=== PATIENT | male | born 1960 | race Caucasian/White ===

== ENCOUNTER 2017-11-06 08:22 | Inpatient (IN) ==
--- NOTE | 2017-11-06 10:46 | ED ---
HPI General Chief Complaint: Psychiatric Symptoms Stated Complaint: PSYCH EVAL/VCSO Time Seen by Provider: 11/06/17 10:36 History of Present Illness HPI Narrative: Patient comes to the emergency department for psychiatric evaluation after being medically cleared at another hospital. Patient was accepted in transfer by Dr. Bourgeois. Patient was placed on a Khalil act for suicidal thoughts. Patient states he is under a lot of stress, has been drinking, concerned over losing his house, and thought about killing himself. Patient denies any previous suicide attempts. Patient states he thought about throwing himself in front of a train. He states that he tried to get into [facility] yesterday, but was redirected to the hospital. Patient's concerned that he has not had any of his blood pressure medications since yesterday. Denies any symptoms currently. Related Data Home Medications Medication Instructions Recorded Confirmed amlodipine 5 mg PO DAILY 11/06/17 11/06/17 doxepin 25 mg PO HS 11/06/17 11/06/17 lisinopril 20 mg PO BID 11/06/17 11/06/17 methylprednisolone 0.4 mg SUBLINGUAL PRN 11/06/17 11/06/17 nitroglycerin See Label Instructions .ROUTE 11/06/17 11/06/17 .COMPLEX oxycodone-acetaminophen See Label Instructions .ROUTE 11/06/17 11/06/17 .COMPLEX PRN pravastatin 20 mg PO HS 11/06/17 11/06/17 Allergies Allergy/AdvReac Type Severity Reaction Status Date / Time No Known Allergies Allergy Uncoded 11/09/11 09:16 Review of Systems Except as stated in HPI: all other systems reviewed are negative PMFSH Medical History Medical History COPD (chronic obstructive pulmonary disease) (Acute) Chest pain (Acute) DVT (deep venous thrombosis) (Acute) Dental decay (Acute) High cholesterol (Acute) Hypertension (Acute) Social History Social History Substance History: Active Abuse Smoking Status: Current every day smoker Tobacco Type: Cigarettes How Often Do You Have a Drink Containing Alcohol: 4 or more times a week Exam Narrative Exam Narrative: GENERAL: Well-developed, overly nourished, in no acute distress , and non-ill appearing. SKIN: Focused skin assessment warm and dry. Venous stasis dermatitis noted bilateral lower extremities. HEAD: Atraumatic. Normocephalic. EYES: Pupils equal and round. EOMI. No scleral icterus. No injection or drainage. ENT: No nasal bleeding or discharge. Mucous membranes pink and moist. NECK: Trachea midline. Supple. No nuclear rigidity. CARDIOVASCULAR: Regular rate and rhythm. No murmur appreciated. RESPIRATORY: No accessory muscle use. No respiratory distress. MUSCULOSKELETAL: No obvious deformities. No clubbing. No cyanosis. Bilateral lower extremity edema noted. Full range of motion. NEUROLOGICAL: Awake and alert. No obvious cranial nerve deficits. Motor grossly within normal limits. Normal speech. PSYCHIATRIC: Appropriate mood and affect; insight and judgment normal. Course Initial Documented Vital Signs Temperature 98.3 F 11/06/17 08:54 Pulse Rate 84 11/06/17 08:54 Respiratory Rate 20 11/06/17 08:54 Blood Pressure 178/106 H 11/06/17 08:54 Pulse Oximetry 95 11/06/17 08:54 Last Documented Vital Signs Temperature 98.3 F 11/06/17 08:54 Pulse Rate 68 11/06/17 14:10 Respiratory Rate 20 11/06/17 08:54 Blood Pressure 163/90 H 11/06/17 14:10 Pulse Oximetry 95 11/06/17 08:54 Medical Decision Making MDM Narrative Medical decision making narrative: Patient was seen and examined. Patient previously medically cleared by previous hospital for further treatment and evaluation by psych. Final disposition per psych. Differential Diagnosis Differential Diagnosis: Homicidal, suicidal, depression Discharge Plan Discharge Disposition Patient Disposition: 30 Still Patient Discharge Details Diagnosis: Suicidal ideation Physicians Team ED Provider: Alisia Stone ED Midlevel Provider: Prince Ceja Primary Care Provider: UNKNOWN, Rxs /Orders / Referrals /Forms Prescriptions: No Action methylprednisolone 0.4 mg Sublingual PRN RF: 0 nitroglycerin See Label Instructions .ROUTE .COMPLEX RF: 0 amlodipine 5 mg PO DAILY RF: 0 doxepin 25 mg PO HS RF: 0 oxycodone-acetaminophen See Label Instructions .ROUTE .COMPLEX PRN (Reason: Pain) RF: 0 pravastatin 20 mg PO HS RF: 0 lisinopril 20 mg PO BID RF: 0 Status ED Status: Medically Cleared
[2017-11-06] MEDS ORDERED: amLODIPine 5 MG Tablet PO ONE (10:47)
[2017-11-06] MEDS ORDERED: Haloperidol Inj 5 MG/ML Ampul IV.PUSH PRN (10:47)
[2017-11-06] MEDS ORDERED: Lisinopril 20 MG Tablet PO ONE (12:59)
[2017-11-06] MEDS: LORazepam 1 MG Tablet PO PRN (20:07)
[2017-11-07] MEDS: LORazepam 1 MG Tablet PO PRN ×2 (04:34→08:54)
[2017-11-07] MEDS ORDERED: Bisacodyl 10 MG Supp RECTAL PRN (13:50)
[2017-11-07] MEDS ORDERED: Haloperidol Inj 5 MG/ML Ampul IV.PUSH PRN (13:50)
[2017-11-07] MEDS ORDERED: Aluminum/Magnesium/Simethacone Susp 30 ML UDC PO PRN (13:50)
[2017-11-07] MEDS ORDERED: LORazepam 1 MG Tablet PO PRN (13:50)
--- NOTE | 2017-11-07 14:12 | P.HPPSY ---
Provisional Diagnosis Admission Date: November 06, 2017 08:22 Crossnore I.: Adjustment disorder with depressed mood vs major depressive disorder, recurrent , severe, without psychotic, alcohol induced mood disorder, alcohol use disorder , Cross[place] II.: Deferred Cross[place] III.: Bilateral leg cellulitis, hypertension, COPD Competence Certification of Person's Competence To Provide Express and Informed Consent I have personally examined Guanaco Zhang, a person being served at [facility] on, November 07, 2017 1352. Express and informed consent means consent voluntarily given in writing, by a competent person, after sufficient explanation and disclosure of the subject matter involved to enable the person to make a knowing and willful decision without any element of force, fraud, deceit, duress, or other form of constraint or coercion. This person is 18 years of age or older, is not now known to be incompetent to consent to treatment with a guardian advocate, and does not have a health care surrogate or proxy currently making medical treatment decisions. I have found this person to be one of the following: [x] Competent to provide express and informed consent, as defined above, for voluntary admission to this facility and is competent to provide express and informed consent for treatment. He/she has the consistent capacity to make well reasoned, willful, and knowing decisions concerning his or her medical or mental health treatment. The person fully and consistently understands the purpose of the admission for examination/placement and is fully capable of personally exercising all rights assured [place] Incompetent to provide express and informed consent to voluntary admission, and this is incompetent to provide express and informed consent to treatment. The person must be transferred to involuntary status and a petition for a guardian advocate filed with the Circuit Court. [] Refusing to provide express and informed consent to voluntary admission but is competent to provide express and informed consent for treatment. The person must be discharged or transferred to involuntary status. Form shall be completed within 24 hours of a person's arrival at the receiving facility and filed in the clinical record of each person: 1. Admitted on a voluntary basis 2. Permitted to provide express and informed consent to his/her own treatment 3. Allowed to transfer from involuntary to voluntary status 4. Prior to permitting a person to consent to his or her own treatment after having been previously found incompetent to consent to treatment. History of Present Illness Capacity: Has capacity History of Present Illness: The patient is a 56-year-old man, homeless, single, with poor family and social support, unemployed, with psychiatric history of depression, anxiety , alcohol use disorder, no previous psychiatric hospitalizations, no previous suicide attempts, history of detox/rehabs, medical history hypertension, lower leg cellulitis, COPD, who comes to the emergency department for psychiatric evaluation after being medically cleared at another [facility]. Patient was accepted in transfer by me. Patient was placed on a Khalil act for suicidal ideation with a plan of jumping in front of a car. EMR was reviewed. The patient is calm, cooperative, but very tearful, objectively depressed. He says that he has nothing to live for, he feels desperate, hopeless, helpless, worthless, with persistent suicidal ideation with a plan of jumping in front of a car. Patient states he is under a lot of stress due to his economical and home situation, due to the lack of social and family support, has been drinking everyday more and more, he is very concerned over losing his house and becoming homeless. He states that he tried to get into [facility] yesterday for treatment of depression and alcoholism, but was redirected to the hospital. Patient also reports to be in a very dedicated medical condition, he says that his blood pressure has been out of control, he says that he is lower leg cellulitis has been becoming worse. The patient denies homicidal ideation, he denies visual and auditory hallucinations. He is oriented 3, no attention deficit, no fluctuation of consciousness. No loosening of associations, no paranoia, no agitation or aggressive behavior present. The patient reports daily use of alcohol, denies the use of illegal drugs. - Inpatient Certification I certify that the inpatient services were ordered in accordance with Medicare regulations governing the order. This includes certification that hospital inpatient services are reasonable and necessary and in the case of services not specified as inpatient-only under 42 CFR 419.22(n), that they are appropriately provided as inpatient services in accordance to with the 2-midnight benchmark under 43 CFR 412.3(e) I certify that inpatient psychiatric hospital services are medically necessary. Evaluation and treatment and/or diagnostic testing are expected to improve the patient's condition. The patient needs on a daily basis, active treatment furnished directly by or requiring the supervision of inpatient psychiatric facility personnel. Estimated Total Length of Stay (Days): 7 Plans for Post Hospital Care: Home Review of Systems Constitutional: Denies anorexia, Denies body ache(s), Denies chills, Denies daytime sleepiness, Denies excessive sweating, Denies fatigue, Denies fever(s), Denies headache(s), Denies increased appetite, Denies lack of energy, Denies malaise, Denies night sweats, Denies weakness, Denies weight gain, Denies weight loss, Denies other Respiratory: Denies change in phlegm color, Denies chest congestion, Denies cough, Denies coughing up blood, Denies excessive phlegm production, Denies pain on inspiration, Denies pain with cough, Denies shortness of breath, Denies shortness of breath with activity, Denies snoring, Denies stridor, Denies wheezing, Denies other Gastrointestinal: Denies abdominal pain, Denies belching, Denies black, tarry stools, Denies bloating, Denies bright, red blood in stools, Denies change in bowel habits, Denies constant urge to pass stool, Denies change in stools, Denies coffee ground vomit, Denies constipation, Denies cramping, Denies difficulty swallowing, Denies excessive passing of gas, Denies feeling full early, Denies heartburn, Denies incontinent of stools, Denies loose stools, Denies nausea, Denies pain with swallowing, Denies vomiting, Denies vomiting blood, Denies other Genitourinary: Denies blood in semen, Denies blood in urine, Denies decreased urination, Denies difficulty urinating, Denies difficulty with ejaculations, Denies erectile dysfunction, Denies genital lesions, Denies genital pain, Denies painful urination, Denies side pain, Denies frequent nighttime urination , Denies painful ejaculations, Denies penile discharge, Denies scrotal swelling , Denies testicle lump, Denies testicle pain, Denies urinary frequency, Denies urinary hesitancy, Denies urinary incontinence, Denies urinary urgency, Denies other Musculoskeletal: Reports limited joint movement, Denies abnormal walking, Denies back pain, Denies body aches, Denies decreased muscle mass, Denies deformity, Denies joint pain, Denies joint swelling, Denies loss of height, Denies muscle cramps, Denies muscle weakness, Denies neck pain, Denies numbness , Denies radiating pain into limb, Denies stiffness, Denies tingling, Denies other Psychiatric: Reports depression, Reports irritability, Reports lack of enjoyment , Reports mood swings, Reports thoughts of hurting/killing yourself [facility] - History History Provided By: Patient - Medical History Medical History: Medical History (Last Updated 11/06/17 @ 11:30 by Morgan Quezada RN) COPD (chronic obstructive pulmonary disease) Chest pain DVT (deep venous thrombosis) Dental decay High cholesterol Hypertension - Tobacco History Tobacco Use In Past 30 Days: Yes Smoking Status: Current every day smoker Tobacco Type: Cigarettes - Alcohol History How Often Do You Have a Drink Containing Alcohol: 4 or more times a week - Substance Use History Substance History: Active Abuse - Substance Use Type Alcohol Status: Active Route Used: By Mouth Frequency: 1 .75 liter every 2 days Comment: self medicate - Immunization History Tetanus Immunization: Unsure Hx Influenza Vaccine This Season: No Quality Measures - Substance Abuse History Drug or alcohol use in the past 12 months: The patient reports daily use of alcohol. - Patient Strengths Patient's strengths (minimum of 2): Lack of family and social support, he is about to lose his housing. Medications and Allergies Active Medications: Active Medications Flumazenil (Romazecon Inj) 0.2 mg IV.PUSH Q1M PRN PRN Reason: OVERSEDATION Haloperidol Lactate (Haldol Inj) 1 mg IV.PUSH Q15M PRN PRN Reason: for severe agitation Lorazepam (Ativan Inj) 2 mg IV.PUSH Q15M PRN PRN Reason: for CIWA > 20 Lorazepam (Ativan Inj) 2 mg IV.PUSH Q1H PRN PRN Reason: for CIWA 15-20 Lorazepam (Ativan Inj) 2 mg IV.PUSH Q2H PRN PRN Reason: for CIWA 11-14 Lorazepam (Ativan) 1 mg PO Q4H PRN PRN Reason: for CIWA 8-10 Last Admin: 11/07/17 08:54 Dose: 1 mg Lorazepam (Ativan) 2 mg PO Q2H PRN PRN Reason: for CIWA 11-14 Lorazepam (Ativan Inj) 1 mg IV.PUSH Q4H PRN PRN Reason: for CIWA 8-10 Allergies Allergy/AdvReac Type Severity Reaction Status Date / Time No Known Allergies Allergy Uncoded 11/09/11 09:16 Home Medications Medication Instructions Recorded Confirmed Type amlodipine 5 mg PO DAILY 11/06/17 11/06/17 History doxepin 25 mg PO HS 11/06/17 11/06/17 History lisinopril 20 mg PO BID 11/06/17 11/06/17 History methylprednisolone 0.4 mg SUBLINGUAL PRN 11/06/17 11/06/17 History nitroglycerin See Label Instructions .ROUTE 11/06/17 11/06/17 History .COMPLEX oxycodone-acetaminophen See Label Instructions .ROUTE 11/06/17 11/06/17 History .COMPLEX PRN pravastatin 20 mg PO HS 11/06/17 11/06/17 History Exam Vital signs: Vital Signs 11/06/17 14:10 11/06/17 18:11 11/07/17 04:50 Temperature 98 F Pulse Rate 68 64 73 Respiratory Rate 16 16 Blood Pressure 163/90 H 189/102 H 156/80 H Pulse Oximetry 94 L 95 Intake & Output 11/06/17 11/07/17 11/07/17 18:59 06:59 18:59 Weight 131.542 kg Narrative: Patient has bilateral hand shaking, sweating, he seems to be quite psychomotor retarded, with lower leg edema, but no EPS, no stiffness, - Constitutional no acute distress - Routine HEENT Exam Head: Present: normocephalic Mental Status Examination Appearance: Appropriate Consciousness: Alert Orientation: x4 Speech: Unremarkable Language: Adequate Fund of Knowledge: Adequate Memory: Unremarkable Mood: Sad Affect: Sad Thought Process & Associations: Intact Thought Content: Appropriate Hallucination Type: None Suicidal Ideation: Yes Suicidal Plan: No Suicidal Intention: No Homicidal Ideation: No Homicidal Plan: No Homicidal Intention: No Insight: Poor Judgment: Poor Assessment and Plan - Assessment (1) Depression Code(s): F32.9 - Major depressive disorder, single episode, unspecified Status : Acute - Plan Plan: Estimated LOS: [] days Psychiatric evaluation today the patient presents with symptomatology of depression consisting on depressed mood, lack of enjoyment in usually enjoyable activities, hopelessness, helplessness, worthlessness, increased alcohol use, generalized pessimism, suicidal thoughts with a plan of jumping in front of a car or a train. The patient has been feeling depressed for the last month in the context of losing his house, increased alcohol use, lack of family and social support. Patient seems to be desperate, objectively depressed, with marked psychomotor retardation and persistent crying during the evaluation. The patient would be admitted in psychiatry for stabilization and safety. We will start the patient in a CIWA protocol. We will start Remeron 50 mg at bedtime to help with sleep and depression. Transferred the patient to med psych unit. Patient will be admitted voluntarily. Justification for Continued Inpatient Stay: The patient needs psychiatric admission. (1) Depression Qualifiers: Depression Type: major depressive disorder Major depression recurrence: recurrent Psychotic features: without psychotic features
[2017-11-07] MEDS: Senna/Docusate Sodium 8.6/50 MG Tablet PO SCH (22:02)
[2017-11-08 09:10] LABS: Anion Gap 9 meq/L (5-15); Blood Urea Nitrogen 11 mg/dL (7-18); Calcium 8.3 mg/dL (8.5-10.1); Carbon Dioxide 24.6 meq/L (21.0-32.0); Chloride 108 meq/L (98-107); Glomerular Filtration Rate Greater Than 89 mL/min (>89); Glucose,Random 107 mg/dL (74-106); Potassium 3.5 meq/L (3.5-5.1); Sodium 142 meq/L (136-145)
[2017-11-08 09:11] LABS: Cholesterol 206 mg/dL (120-200)
[2017-11-08 09:13] LABS: Chol/HDL Ratio 4.15 Ratio; HDL Cholesterol 49.6 mg/dL (40.0-60.0); LDL Cholesterol,Calculated 132 mg/dL (0-99); Triglycerides 124 mg/dL (42-150)
[2017-11-08] MEDS ORDERED: Acetaminophen 325 MG Tablet PO PRN (09:45)
[2017-11-08] MEDS ORDERED: Aluminum/Magnesium/Simethacone Susp 30 ML UDC PO PRN (09:45)
--- NOTE | 2017-11-08 09:55 | P.PNPSY ---
Subjective Remarks: Patient initially admitted by Dr. Bourgeois,'s H&P reviewed and agreed with. I have done the initial psychiatric admitting template orders. Patient seen by me today to with nurse Beata. Patient gives history of increased depression seeming to be more environmentally related to his loss of employment due to various injuries, fear of homelessness, multiple medical conditions. There was increase suicidality though he denies it at this time. He acknowledges intermittent alcohol binges, acknowledges past use of marijuana and cocaine legal issues and incarceration related to the cocaine problems. He states he has had psychiatric hospitalization within the past month it appears at [facility] where he was discharged on various medications. None of which appears to have been continued. It appears that this hospitalization he prior wound up at [facility] then a [facility] before arriving at our facility and being admitted. Because of his alcohol use we have initiated a ciwa protocol. We will have hospitalist consult will us patient has appears some peripheral venous circulation issues in both lower legs, there is a history of COPD. While the patient continues being a smoker. His past history of marijuana and cocaine abuse also Review of Systems All other systems reviewed negative except as stated in HPI Mental Status Examination Appearance: Appropriate Consciousness: Alert Orientation: x4 Motor Activity: Other (Patient laying in bed) Speech: Unremarkable Language: Adequate Fund of Knowledge: Adequate Attention and Concentration: Adequate Memory: Unremarkable Mood: Sad Affect: Other (Decreased range and intensity) Thought Process & Associations: Intact Thought Content: Appropriate Hallucination Type: None Suicidal Ideation: Yes (Denies with me today denies willingness to take suicide pill) Suicidal Plan: No Suicidal Intention: No Homicidal Ideation: No Homicidal Plan: No Homicidal Intention: No Insight: Poor Judgment: Poor Assessment and Plan - Assessment (1) Major depressive disorder, recurrent severe without psychotic features Code(s): F33.2 - Major depressive disorder, recurrent severe without psychotic features Status: Acute - Plan Plan: At this time patient does not meet criteria for voluntary inpatient psychiatric assessment and treatment we will initiate Remeron at 15 mg at at bedtime we will continue the ciwa protocol over the weekend. We will have counselor talk with this patient about resources in the community to help him out with his various living issues financial issues and legal issues Justification for Continued Inpatient Stay: At this time patient would decompensate a place to a lower level of care Discharge Planning: To be determined
[2017-11-08] MEDS: Senna/Docusate Sodium 8.6/50 MG Tablet PO SCH ×2 (10:01→21:06)
[2017-11-08] MEDS ORDERED: LORazepam 1 MG Tablet PO PRN (10:26)
[2017-11-08] MEDS ORDERED: Haloperidol Inj 5 MG/ML Ampul IV.PUSH PRN (10:26)
[2017-11-08] MEDS: amLODIPine 5 MG Tablet PO SCH (14:39)
[2017-11-08] MEDS: Folic Acid 1 MG Tablet PO SCH (14:39)
[2017-11-08] MEDS: Famotidine 20 MG Tablet PO SCH ×2 (15:00→21:03)
[2017-11-08] MEDS: Multivitamin/Minerals Therapeutic Tablet PO SCH (15:00)
[2017-11-08] MEDS: Lisinopril 20 MG Tablet PO SCH ×2 (15:00→21:03)
--- NOTE | 2017-11-08 19:06 | P.CONIM ---
History of Present Illness Service: [facility] Consult date: 11/08/17 Requesting Physician: Patrice Mendieta Reason for Consult: MEDICAL MANAGEMENT Primary Care Provider: UNKNOWN Chief Complaint: CELLULITIS AND SWELLING OF BILATERAL LOWER EXTREMITIES History of Present Illness: Patient is a 56-year-old gentleman who presented to the emergency department with depressed mood and alcohol induced mood disorder and alcohol use disorder as well as having bilateral lower extremity cellulitis and hypertension and COPD and alcohol abuse We have been asked to consult regarding all of the above Patient is 56-year-old male, he states he is homeless currently. Who has history of depression and anxiety and alcohol use disorder with history of hypertension bilateral lower leg cellulitis COPD. Patient was Khalil acted for suicidal ideation after having a plan of jumping in front of a car Past medical history significant for COPD Chest pain History of DVT Dental decay Hyperlipidemia Hypertension Tobacco abuse Alcohol abuse probable diabetes Probable peripheral vascular occlusive disease/peripheral arterial disease Review of Systems All other systems reviewed negative except as stated in HPI Constitutional: Denies anorexia, Denies body ache(s), Denies fatigue, Denies fever(s), Denies malaise, Denies night sweats Eyes: Denies blind spots, Denies discharge, Denies dry eyes, Denies requires corrective lenses Ears, Nose, Mouth, and Throat: Denies abnormal hearing, Denies dental pain, Denies lip swelling, Denies nasal discharge, Denies nose pain, Denies ringing in the ears Cardiovascular: Reports leg pain with activity, Reports leg swelling, Denies excessive sweating, Denies generalized swelling, Denies shortness of breath with activity, Denies shortness of breath causing sudden awakening Respiratory: Denies change in phlegm color, Denies excessive phlegm production, Denies shortness of breath, Denies wheezing Gastrointestinal: Denies abdominal pain, Denies bright, red blood in stools, Denies constant urge to pass stool, Denies constipation, Denies feeling full early, Denies pain with swallowing Genitourinary: Reports urinary urgency Musculoskeletal: Denies abnormal walking, Denies back pain, Denies deformity, Denies loss of height, Denies muscle cramps, Denies radiating pain into limb Skin/Breast: Reports redness (Bilateral lower extremities), Reports rash, Denies acne, Denies nipple discharge Neurologic: Denies abnormal hearing, Denies abnormal walking, Denies dizziness, Denies fainting, Denies localized weakness, Denies other visual disturbances Psychiatric: Denies abnormal sleep pattern, Denies change in sex drive, Denies hearing things others do not hear, Denies lack of enjoyment, Denies seeing things others do not see, Denies tactile hallucinations, Denies thoughts of hurting/killing yourself Endocrine: Denies cold intolerance, Denies increased hunger, Denies rapid, pounding, or irregular heartbeat Hematologic/Lymphatic: Denies easy bleeding, Denies easy bruising Allergic/Immunologic: Denies GI upset with certain foods, Denies seasonal runny nose PMFSH - History History Provided By: Patient, Family Member, Medical Record - Medical History Medical History: Medical History (Last Reviewed 11/07/17 @ 18:35 by Shama Vazquez RN) COPD (chronic obstructive pulmonary disease) Chest pain DVT (deep venous thrombosis) Dental decay High cholesterol Hypertension - Tobacco History Second Hand Smoke Exposure: No Tobacco Use In Past 30 Days: Yes Smoking Status: Current every day smoker Tobacco Type: Cigarettes - Alcohol History How Often Do You Have a Drink Containing Alcohol: 2 to 3 times a week - Substance Use History Substance History: Active Abuse - Substance Use Type Alcohol Status: Active Route Used: By Mouth Frequency: 1 .75 liter every 2 days Last Used: unknown Reason for Use: Calm Down, Feels Good Comment: According to patient he has been drinking alcohol since around age 13; and has had brief moments of sobriety; and several years ago due to medical issues causing him to be off and on again with work he turn back to alcohol. - Travel History History of Recent Travel: No Recent Travel in the [place] Within the Last 8 Weeks: No Recent Travel Out of the Country Within the Last 8 Weeks: No - Immunization History Tetanus Immunization: Unsure Hx Influenza Vaccine This Season: No Medications and Allergies Active Medications: Active Medications Acetaminophen (Tylenol) 650 mg PO Q4H PRN PRN Reason: Pain 1-5 or Temp >101F Al Hydrox/Mg Hydrox/Simethicone (Mag-Al Plus Susp Liq) 30 ml PO Q6H PRN PRN Reason: DYSPEPSIA Al Hydroxide/Mg Hydroxide (Milk Of Magnesia Liq) 30 ml PO Q12H PRN PRN Reason: Mild Constipation Albuterol (Duoneb Neb (Prn)) 1 ampul NEB Q4HR NEB PRN PRN Reason: SHORTNESS OF BREATH/WHEEZING Amlodipine Besylate (Norvasc) 5 mg PO DAILY [facility] Last Admin: 11/08/17 14:39 Dose: 5 mg Bisacodyl (Dulcolax Supp) 10 mg RECTAL DAILY PRN PRN Reason: SEVERE CONSITIPATION Clonidine HCl (Catapres) 0.1 mg PO Q6H PRN PRN Reason: For SBP >/= 180, DBP >/= 100 Last Admin: 11/08/17 18:09 Dose: 0.1 mg Diphenhydramine HCl (Benadryl) 50 mg PO HS PRN PRN Reason: INSOMNIA Famotidine (Pepcid) 20 mg PO BID [facility] Last Admin: 11/08/17 15:00 Dose: 20 mg Flumazenil (Romazecon Inj) 0.2 mg IV.PUSH Q1M PRN PRN Reason: OVERSEDATION Folic Acid (Folic Acid) 1 mg PO DAILY [facility] Stop: 11/13/17 10:59 Last Admin: 11/08/17 14:39 Dose: 1 mg Haloperidol Lactate (Haldol Inj) 1 mg IV.PUSH Q15M PRN PRN Reason: for severe agitation Hydroxyzine HCl (Atarax) 50 mg PO Q6H PRN PRN Reason: ANXIETY Lactulose (Lactulose Liq) 30 ml PO DAILY PRN PRN Reason: SEVERE CONSITIPATION Lisinopril (Prinivil) 20 mg PO BID [facility] Last Admin: 11/08/17 15:00 Dose: 20 mg Lorazepam (Ativan) 1 mg PO Q4H PRN PRN Reason: for CIWA 8-10 Lorazepam (Ativan) 2 mg PO Q2H PRN PRN Reason: for CIWA 11-14 Lorazepam (Ativan Inj) 2 mg IV.PUSH Q2H PRN PRN Reason: for CIWA 11-14 Lorazepam (Ativan Inj) 2 mg IV.PUSH Q1H PRN PRN Reason: for CIWA 15-20 Lorazepam (Ativan Inj) 2 mg IV.PUSH Q15M PRN PRN Reason: for CIWA > 20 Lorazepam (Ativan Inj) 1 mg IV.PUSH Q4H PRN PRN Reason: for CIWA 8-10 Mirtazapine (Remeron) 15 mg PO HS [facility] Multivitamins/Minerals (Theragran-M) 1 tab PO DAILY [facility] Stop: 11/13/17 10:59 Last Admin: 11/08/17 15:00 Dose: 1 tab Pravastatin Sodium (Pravachol) 20 mg PO [facility] Senna/Docusate Sodium (Parisa-Colace) 1 tab PO BID [facility] Last Admin: 11/08/17 10:01 Dose: Not Given Sennosides (Senokot) 17.2 mg PO Q12H PRN PRN Reason: Moderate Constipation Thiamine HCl (Vitamin B1) 100 mg PO DAILY [facility] Last Admin: 11/08/17 15:00 Dose: 100 mg Allergies Allergy/AdvReac Type Severity Reaction Status Date / Time No Known Allergies Allergy Uncoded 11/09/11 09:16 Home Medications Medication Instructions Recorded Confirmed Type amlodipine 5 mg PO DAILY 11/06/17 11/06/17 History doxepin 25 mg PO HS 11/06/17 11/06/17 History lisinopril 20 mg PO BID 11/06/17 11/06/17 History methylprednisolone 0.4 mg SUBLINGUAL PRN 11/06/17 11/06/17 History nitroglycerin See Label Instructions .ROUTE 11/06/17 11/06/17 History .COMPLEX oxycodone-acetaminophen See Label Instructions .ROUTE 11/06/17 11/06/17 History .COMPLEX PRN pravastatin 20 mg PO HS 11/06/17 11/06/17 History Exam Vital signs: Vital Signs 11/08/17 05:39 11/08/17 18:30 Temperature 99.5 F Pulse Rate 64 81 Respiratory Rate 18 18 Blood Pressure 164/94 H 172/100 H Pulse Oximetry 92 L 94 L Intake & Output 11/07/17 11/08/17 11/08/17 18:59 06:59 18:59 Intake Total 360 / 360 Balance 360 / 360 Intake: Oral 360 / 360 Narrative: GENERAL: Awake alert oriented 3 talkative and cooperative appears quite anxious SKIN: Warm and dry. Bilateral lower extremity swelling and some edema and erythema bilaterally HEAD: Atraumatic. Normocephalic. EYES: Pupils equal and round. No scleral icterus. No injection or drainage. ENT: No nasal bleeding or discharge. Mucous membranes pink and moist. NECK: Trachea midline. No JVD. CARDIOVASCULAR: Regular rate and rhythm. S1-S2 no S3 or S4 RESPIRATORY: No accessory muscle use. Clear to auscultation. Breath sounds equal bilaterally. GASTROINTESTINAL: Abdomen soft, non-tender, nondistended. Hepatic and splenic margins not palpable. MUSCULOSKELETAL: Extremities without clubbing, cyanosis, or edema. No obvious deformities. Possible bilateral lower extremity cellular NEUROLOGICAL: Awake and alert. No obvious cranial nerve deficits. Motor grossly within normal limits. Five out of 5 muscle strength in the arms and legs. Normal speech. PSYCHIATRIC: Appropriate mood and affect; insight and judgment normal. Results - Labs CBC & Chem 7: 11/08/17 08:15 Labs: Laboratory Results - last 24 hr 11/08/17 11/08/17 08:15 08:15 Sodium 142 Potassium 3.5 Chloride 108 H Carbon Dioxide 24.6 Anion Gap 9 BUN 11 Creatinine 0.82 Estimated GFR Greater than 89 Random Glucose 107 H Hemoglobin A1c 5.0 Calcium 8.3 L Triglycerides 124 Cholesterol 206 H LDL Cholesterol, Calc 132 H HDL Cholesterol 49.6 Cholesterol/HDL Ratio 4.15 Assessment and Plan - Plan Bilateral lower extremity cellulitis will start on Augmentin twice daily We will check bilateral lower extremity ultrasounds to rule out DVTs COPD/tobacco abuse NicoDerm patch and Mucinex and duo nebs as needed Hypertension resume home medications and as needed Catapres Depression and anxiety and suicidal ideation AND Khalil act will defer to psychiatry Hyperlipidemia will continue on his statin Alcohol abuse continue on CIWA protocol Continue on multivitamin thiamine and folic acid Code Status: FULL CODE Discussed Condition With: RN AND PT Discharge Planning: PENDING PSYCHIATRIC CLEARANCE
[2017-11-08] MEDS ORDERED: Senna/Docusate Sodium 8.6/50 MG Tablet PO SCH (21:00)
[2017-11-08] MEDS: Mirtazapine 15 MG Tablet PO SCH (21:03)
[2017-11-08] MEDS: Amoxicillin/Clavulanate 875/125 MG Tablet PO SCH (21:03)
[2017-11-08] MEDS: Lactobacillus Acidophilus/L. Spores Tablet PO SCH (21:04)
[2017-11-09] MEDS: Lisinopril 20 MG Tablet PO SCH ×2 (09:11→20:41)
[2017-11-09] MEDS: amLODIPine 5 MG Tablet PO SCH (09:11)
[2017-11-09] MEDS: Famotidine 20 MG Tablet PO SCH ×2 (09:11→22:10)
[2017-11-09] MEDS: Multivitamin/Minerals Therapeutic Tablet PO SCH (09:11)
[2017-11-09] MEDS: Folic Acid 1 MG Tablet PO SCH (09:11)
[2017-11-09] MEDS: Amoxicillin/Clavulanate 875/125 MG Tablet PO SCH ×2 (09:11→20:41)
[2017-11-09] MEDS: Senna/Docusate Sodium 8.6/50 MG Tablet PO SCH ×2 (09:11→20:43)
[2017-11-09] MEDS: Lactobacillus Acidophilus/L. Spores Tablet PO SCH ×3 (09:11→18:43)
--- NOTE | 2017-11-09 09:33 | P.PN ---
Subjective Interval history: Follow-up visit for hypertension, bilateral lower extremity cellulitis and edema. Patient is seen and examined resting in bed and appears to be in no acute distress. He denies any cough, shortness of breath, nausea, vomiting, diarrhea, fevers, or chest pain. Patient reports that his legs are feeling much better this morning. He reports left toe sore and left ankle sore have healed. Reports he was on Xarelto 1month ago at [facility]. States they found 3 non-occlusive clots in his left leg. Reports prior blood clots and at one point was on Coumadin in the past. Brother also had history of BC, was seen by a hem/onc in [place] and was only placed on ASA. 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 Physical Exam Vital signs: Vital Signs 11/08/17 18:30 11/08/17 22:27 11/09/17 05:37 Temperature 36.4 C Pulse Rate 81 66 Respiratory Rate 18 18 17 Blood Pressure 172/100 H 138/72 Pulse Oximetry 94 L 94 L Intake & Output 11/08/17 11/09/17 11/09/17 18:59 06:59 18:59 Intake Total 360 / 360 0 / 0 240 / 240 Balance 360 / 360 0 / 0 240 / 240 Intake: Oral 360 / 360 0 / 0 240 / 240 Other: # Voids 1 Narrative: GENERAL: Obese male who appears to be in no acute distress. SKIN: Warm and dry. Bilateral lower extremity trace edema, slight erythema bilaterally, no warmth or drainage noted. HEAD: Atraumatic. Normocephalic. EYES: Pupils equal and round. No scleral icterus. No injection or drainage. ENT: No nasal bleeding or discharge. Mucous membranes pink and moist. NECK: Trachea midline. No JVD. CARDIOVASCULAR: Regular rate and rhythm. RESPIRATORY: No accessory muscle use. Diminished but clear to auscultation. Breath sounds equal bilaterally. GASTROINTESTINAL: Abdomen soft, non-tender, nondistended. Positive bowel sounds in all quadrants. MUSCULOSKELETAL: Extremities without clubbing or cyanosis. No obvious deformities. NEUROLOGICAL: Awake and alert. No obvious cranial nerve deficits. Motor grossly within normal limits. Five out of 5 muscle strength in the arms and legs. Normal speech. PSYCHIATRIC: Appropriate mood and affect; insight and judgment normal. Results - Labs CBC & Chem 7: 11/08/17 08:15 Laboratory Results - last 24 hr 11/08/17 08:15 Hemoglobin A1c 5.0 Assessment and Plan - Plan 56-year-old male with past medical history of DVTs, COPD, chest pain, HLD, HTN, tobacco abuse and alcohol use who presented to the emergency department with increased depression. [facility] consulted to evaluate for bilateral lower extremity swelling as well as cellulitis. Bilateral lower extremity cellulitis -Patient to continue on oral Augmentin, improvement in erythema per patient. Hx DVT + RLE DVT -Patient reports he is has a positive history of multiple DVTs in the past, has been on Coumadin for anticoagulation although reports this is not a preferred method for him due to lab test associated with Coumadin. Was recently [facility] with left leg nonocclusive DVT treated with Xarelto. -Bilateral lower extremity ultrasound with positive DVT in her right lower extremity. -Start Eliquis 10 mg twice daily 7 days, will need to follow with Eliquis 5mg BID. Extensive discussion with patient regarding importance of anticoagulation due to recurrence of DVTs. Eliquis was chosen as patient is reluctant to be started on Coumadin due to job constraints and routine laboratory testing. Eliquis is available through our outpatient pharmacy, will hopefully be able to provide him with 1 month supply once discharged. Discussed with patient the importance of smoking cessation as well. Hypertension Hyperlipidemia -Continue Norvasc 5 mg daily, lisinopril 20 mg twice daily, restart patient' s hydrochlorothiazide -Monitor BP and adjust medications accordingly. Tobacco/alcohol abuse -Cessation encouraged, WA protocol, continue multivitamin, thiamine, folic acid DVT prophylaxis-Eliquis Discussed Condition With: Patient and nurse.
--- NOTE | 2017-11-09 13:02 | US ---
EXAM DATE: 11/09/2017 12:21 PM EDT AGE/SEX: 56 years / Male INDICATIONS: Bilateral lower extremity pain and swelling. CLINICAL DATA: This is the patient's subsequent encounter. Patient reports that signs and symptoms h ave been present for 4 - 6 days and indicates a pain score of 6/10. MEDICAL/SURGICAL HISTORY: . Hypertension. Hypercholesterolemia. COPD. Deep vein thrombosis. None. COMPARISON: No prior exams available for comparison. TECHNIQUE: Venous ultrasound of both lower extremities was performed from the inguinal ligament to t he proximal calf. Real-time, color Doppler and spectral tracing, compression and augmentation techni ques were used. FINDINGS: Right Leg: There is extensive deep venous thrombosis from the femoral vein through the popliteal vei n and trifurcation veins. Left Leg: There is normal compressibility of the deep venous system from the inguinal region to the proximal calf. No echogenic clot is seen in the lumen of the common femoral, femoral, popliteal, and posterior tibial veins. There is a normal response of the venous system to proximal and distal augme ntation and respiration Other: None. CONCLUSION: 1. Deep venous thrombosis right lower extremity Electronically signed by: León Jay MD 11/09/2017 1:00 PM EDT
--- NOTE | 2017-11-09 16:06 | P.PNPSY ---
Subjective Remarks: Patient was seen and case discussed with nursing. Patient is pleasant and cooperative with exam. His CIWA is 5. Her nursing he was anxious and had mild facial tremors. There are no tremors for this interview. He is alert and oriented 4. There is no nausea or vomiting or visual hallucinations. Mood remains depressed and he feels hopeless towards the future. However, he denies suicidal or homicidal ideation intent or plan. He is motivated to stop drinking Mental Status Examination Appearance: Appropriate Consciousness: Alert Orientation: x4 Motor Activity: Other (Patient laying in bed) Speech: Unremarkable Language: Adequate Fund of Knowledge: Adequate Attention and Concentration: Adequate Memory: Unremarkable Mood: Sad Affect: Other (Decreased range and intensity) Thought Process & Associations: Intact Thought Content: Appropriate Hallucination Type: None Suicidal Ideation: Yes (Denies with me today denies willingness to take suicide pill) Suicidal Plan: No Suicidal Intention: No Homicidal Ideation: No Homicidal Plan: No Homicidal Intention: No Insight: Poor Judgment: Poor Assessment and Plan - Assessment (1) Major depressive disorder, recurrent severe without psychotic features Code(s): F33.2 - Major depressive disorder, recurrent severe without psychotic features Status: Acute - Plan Plan: Continue current treatment plan Justification for Continued Inpatient Stay: Patient would decompensate in a less restrictive setting
[2017-11-09] MEDS: Mirtazapine 15 MG Tablet PO SCH (20:41)
--- NOTE | 2017-11-10 08:35 | P.PN ---
Subjective Interval history: Follow-up visit for hypertension, bilateral lower extremity cellulitis, edema, and right LE DVT. Patient is seen and examined in bed, reports he did not get much sleep last night states "they wont give may any of the good stuff". He denies any fevers, chills, N/V/D, SOB, cough or chest. Discussed US findings and need for anticoagulation, verbalized understanding. Physical Exam Vital signs: Vital Signs 11/09/17 18:50 11/10/17 05:33 Temperature 36.4 C L 37.1 C Pulse Rate 74 69 Respiratory Rate 17 20 Blood Pressure 166/81 H 134/82 Pulse Oximetry 96 92 L Intake & Output 11/09/17 11/10/17 11/10/17 18:59 06:59 18:59 Intake Total 1200 / 1200 600 / 600 Balance 1200 / 1200 600 / 600 Intake: Oral 1200 / 1200 600 / 600 Other: # Voids 2 Narrative: GENERAL: Obese male who appears to be in no acute distress. SKIN: Warm and dry. Bilateral lower extremity trace edema, slight erythema bilaterally improved, no warmth or drainage noted. HEAD: Atraumatic. Normocephalic. EYES: Pupils equal and round. No scleral icterus. No injection or drainage. ENT: No nasal bleeding or discharge. Mucous membranes pink and moist. NECK: Trachea midline. No JVD. CARDIOVASCULAR: Regular rate and rhythm. RESPIRATORY: No accessory muscle use. Diminished but clear to auscultation. Breath sounds equal bilaterally. GASTROINTESTINAL: Abdomen soft, non-tender, nondistended. Positive bowel sounds in all quadrants. MUSCULOSKELETAL: Extremities without clubbing or cyanosis. No obvious deformities. NEUROLOGICAL: Awake and alert. No obvious cranial nerve deficits. Motor grossly within normal limits. Normal speech. PSYCHIATRIC: Appropriate mood and affect; insight and judgment normal. Results - Labs CBC & Chem 7: 11/08/17 08:15 - Imaging Impressions Venous Doppler Study 11/09/17 00:00 CONCLUSION: 1. Deep venous thrombosis right lower extremity Assessment and Plan - Plan 56-year-old male with past medical history of DVTs, COPD, chest pain, HLD, HTN, tobacco abuse and alcohol use who presented to the emergency department with increased depression. [facility] consulted to evaluate for bilateral lower extremity swelling as well as cellulitis. Bilateral lower extremity cellulitis -Patient to continue on oral Augmentin until end date, improvement in erythema. Hx DVT + RLE DVT -Patient reports he is has a positive history of multiple DVTs in the past, has been on Coumadin for anticoagulation although reports this is not a preferred method for him due to lab test associated with Coumadin. Was recently [facility] with left leg nonocclusive DVT treated with Xarelto. -Bilateral lower extremity ultrasound with positive DVT in her right lower extremity. -Continue Eliquis 10 mg twice daily 7 days, will need to follow with Eliquis 5mg BID. Eliquis is available through our outpatient pharmacy, will hopefully be able to provide him with 1 month supply once discharged. Discussed with patient the importance of smoking cessation as well. Hypertension Hyperlipidemia -Continue Norvasc 5 mg daily, lisinopril 20 mg twice daily, hydrochlorothiazide 12.5 dialy -BP improved Tobacco/alcohol abuse -Cessation encouraged, CIWA protocol, continue multivitamin, thiamine, folic acid DVT prophylaxis-Eliquis Discussed Condition With: Patient and nurse.
[2017-11-10] MEDS: Folic Acid 1 MG Tablet PO SCH (08:44)
[2017-11-10] MEDS: Lisinopril 20 MG Tablet PO SCH ×2 (08:44→20:32)
[2017-11-10] MEDS: Multivitamin/Minerals Therapeutic Tablet PO SCH (08:44)
[2017-11-10] MEDS: Amoxicillin/Clavulanate 875/125 MG Tablet PO SCH ×2 (08:44→20:31)
[2017-11-10] MEDS: amLODIPine 5 MG Tablet PO SCH (08:44)
[2017-11-10] MEDS: Lactobacillus Acidophilus/L. Spores Tablet PO SCH ×3 (08:44→17:53)
[2017-11-10] MEDS: Famotidine 20 MG Tablet PO SCH ×2 (08:45→20:32)
[2017-11-10] MEDS: Senna/Docusate Sodium 8.6/50 MG Tablet PO SCH ×2 (08:45→20:32)
--- NOTE | 2017-11-10 14:50 | P.PNPSY ---
Subjective Remarks: Patient was seen and case discussed with nursing. Patient is pleasant and cooperative with exam. Continues to be concerned about social stressors such as losing his house and financial concerns. He is feeling "better." He denies suicidal or homicidal ideation intent or plan. Is complaining of insomnia Mental Status Examination Appearance: Appropriate Consciousness: Alert Orientation: x4 Motor Activity: Other (Patient laying in bed) Speech: Unremarkable Language: Adequate Fund of Knowledge: Adequate Attention and Concentration: Adequate Memory: Unremarkable Mood: Sad Affect: Other (Decreased range and intensity) Thought Process & Associations: Intact Thought Content: Appropriate Hallucination Type: None Suicidal Ideation: No (Denies with me today denies willingness to take suicide pill) Suicidal Plan: No Suicidal Intention: No Homicidal Ideation: No Homicidal Plan: No Homicidal Intention: No Insight: Poor Judgment: Poor Assessment and Plan - Assessment (1) Major depressive disorder, recurrent severe without psychotic features Code(s): F33.2 - Major depressive disorder, recurrent severe without psychotic features Status: Acute - Plan Plan: Continue current treatment plan Justification for Continued Inpatient Stay: Patient would decompensate in a less restrictive setting
[2017-11-10] MEDS: Mirtazapine 15 MG Tablet PO SCH (20:32)
[2017-11-10] MEDS ORDERED: Mirtazapine 15 MG Tablet PO SCH (21:00)
--- NOTE | 2017-11-11 08:40 | P.PN ---
Subjective Interval history: Follow-up visit for hypertension, bilateral lower extremity cellulitis, edema, and right LE DVT. Patient is seen and examined sitting up in bed in no acute distress. He reports that yesterday he required Ativan to help him calm down due to anxiety. He denies any fevers, chills, nausea, vomiting, diarrhea, cough , shortness of breath or chest pain. Complains of chronic left foot pain, reports that he always has pain in this foot. He voices no acute concerns or complaints at this moment. Physical Exam Vital signs: Vital Signs 11/10/17 17:52 11/10/17 19:40 11/11/17 06:00 Temperature 36.5 C 36.9 C Pulse Rate 66 75 Respiratory Rate 20 18 Blood Pressure 169/101 H 158/72 H 143/67 H Pulse Oximetry 94 L 94 L Intake & Output 11/10/17 11/11/17 11/11/17 18:59 06:59 18:59 Intake Total 240 / 240 340 / 340 480 / 480 Balance 240 / 240 340 / 340 480 / 480 Weight 359.9 g Intake: Oral 240 / 240 240 / 240 480 / 480 Oral Supplement 100 / 100 Other: # Voids 1 Narrative: GENERAL: Obese male who appears to be in no acute distress. SKIN: Warm and dry. Bilateral lower extremity trace edema, slight erythema, no warmth or drainage noted. HEAD: Atraumatic. Normocephalic. EYES: Pupils equal and round. No scleral icterus. No injection or drainage. ENT: No nasal bleeding or discharge. Mucous membranes pink and moist. NECK: Trachea midline. CARDIOVASCULAR: Regular rate and rhythm. RESPIRATORY: No accessory muscle use. Diminished but clear to auscultation. Breath sounds equal bilaterally. GASTROINTESTINAL: Abdomen soft, non-tender, nondistended. Positive bowel sounds in all quadrants. MUSCULOSKELETAL: Extremities without clubbing or cyanosis. No obvious deformities. NEUROLOGICAL: Awake and alert. No obvious cranial nerve deficits. Motor grossly within normal limits. Normal speech. PSYCHIATRIC: Appropriate mood and affect; insight and judgment normal. Results - Labs CBC & Chem 7: 11/08/17 08:15 Laboratory Results - last 24 hr 11/10/17 20:29 POC Glucose 99 Assessment and Plan - Plan 56-year-old male with past medical history of DVTs, COPD, chest pain, HLD, HTN, tobacco abuse and alcohol use who presented to the emergency department with increased depression. [facility] consulted to evaluate for bilateral lower extremity swelling as well as cellulitis. Bilateral lower extremity cellulitis -Patient to continue on oral Augmentin until end date, improvement in erythema. Hx DVT + RLE DVT -Patient reports he is has a positive history of multiple DVTs in the past, has been on Coumadin for anticoagulation although reports this is not a preferred method for him due to lab test associated with Coumadin. Was recently [facility] with left leg nonocclusive DVT treated with Xarelto. -Bilateral lower extremity ultrasound with positive DVT in her right lower extremity. -Continue Eliquis 10 mg twice daily 7 days, will need to follow with Eliquis 5mg BID. Eliquis is available through our outpatient pharmacy, will hopefully be able to provide him with 1 month supply once discharged. Discussed with patient the importance of smoking cessation as well. -Patient previously applied for patient assistance, nurse to discuss with bottle caser regarding possible prescription once cleared by psychiatry. Hypertension Hyperlipidemia -Continue Norvasc 5 mg daily, lisinopril 20 mg twice daily, hydrochlorothiazide 12.5 dialy -BP improved, continue current medications. Tobacco/alcohol abuse -Cessation encouraged, CIWA protocol, continue multivitamin, thiamine, folic acid DVT prophylaxis-Eliquis Discussed Condition With: Patient and RN
[2017-11-11] MEDS: Folic Acid 1 MG Tablet PO SCH (09:12)
[2017-11-11] MEDS: Amoxicillin/Clavulanate 875/125 MG Tablet PO SCH (09:12)
[2017-11-11] MEDS: Multivitamin/Minerals Therapeutic Tablet PO SCH (09:12)
[2017-11-11] MEDS: amLODIPine 5 MG Tablet PO SCH (09:12)
[2017-11-11] MEDS: Lisinopril 20 MG Tablet PO SCH ×2 (09:12→22:20)
[2017-11-11] MEDS: Lactobacillus Acidophilus/L. Spores Tablet PO SCH ×3 (09:12→18:35)
[2017-11-11] MEDS: Senna/Docusate Sodium 8.6/50 MG Tablet PO SCH ×2 (09:12→22:20)
[2017-11-11] MEDS: Famotidine 20 MG Tablet PO SCH ×2 (09:14→22:20)
--- NOTE | 2017-11-11 11:29 | P.PNPSY ---
Subjective Remarks: Patient seen in his room with nurse Lupe and medical student Luann, chart reviewed, patient compliant medications. Patient seen in his room he is in no acute distress he is calm cooperative with me denying suicidality homicidality voices or visions. There still is some concern confusion about the status of his home. However he feels safe on returning to his home upon discharge. At this time feel patient is is reaching his maximum benefit of this hospitalization. We need medical service to clear him for discharge since there is still treating his DVTs. Hopefully this can be done for possible discharge tomorrow Review of Systems All other systems reviewed negative except as stated in HPI Mental Status Examination Appearance: Appropriate Consciousness: Alert Orientation: x4 Motor Activity: Other (Patient laying in bed) Speech: Unremarkable Language: Adequate Fund of Knowledge: Adequate Attention and Concentration: Adequate Memory: Unremarkable Mood: Other (Euthymic) Affect: Other (Decreased range and intensity) Thought Process & Associations: Intact Thought Content: Appropriate Hallucination Type: None Suicidal Ideation: No (Denies with me today denies willingness to take suicide pill) Suicidal Plan: No Suicidal Intention: No Homicidal Ideation: No Homicidal Plan: No Homicidal Intention: No Insight: Poor Judgment: Poor Assessment and Plan - Assessment (1) Major depressive disorder, recurrent severe without psychotic features Code(s): F33.2 - Major depressive disorder, recurrent severe without psychotic features Status: Acute - Plan Plan: Patient continues to improve psychologically, it appears she is stabilizing also somewhat medically. Consider discharge tomorrow if we can get medical clearance Justification for Continued Inpatient Stay: At this time patient would decompensate a place to a lower level of care Discharge Planning: Possibly to return to his home follow-up [facility] act
[2017-11-11] MEDS: Mirtazapine 15 MG Tablet PO SCH (22:20)
[2017-11-12] MEDS: Amoxicillin/Clavulanate 875/125 MG Tablet PO SCH ×2 (06:46→08:38)
[2017-11-12] MEDS: Lisinopril 20 MG Tablet PO SCH (08:37)
[2017-11-12] MEDS: Lactobacillus Acidophilus/L. Spores Tablet PO SCH (08:38)
[2017-11-12] MEDS: Folic Acid 1 MG Tablet PO SCH (08:38)
[2017-11-12] MEDS: amLODIPine 5 MG Tablet PO SCH (08:38)
[2017-11-12] MEDS: Multivitamin/Minerals Therapeutic Tablet PO SCH (08:38)
[2017-11-12] MEDS: Senna/Docusate Sodium 8.6/50 MG Tablet PO SCH (08:39)
[2017-11-12] MEDS: Famotidine 20 MG Tablet PO SCH (08:45)
--- NOTE | 2017-11-12 09:49 | P.DSPSY ---
Psychiatry Discharge Summary Inpatient Psychiatric care?: Yes Advance Directives: No Mental Health Advance Directive: No Health Care Proxy: No - Admission Admission Date: November 07, 2017 13:50 - Admission Diagnosis (1) Major depressive disorder, recurrent severe without psychotic features Code(s): F33.2 - Major depressive disorder, recurrent severe without psychotic features Brief History: The patient is a 56-year-old man, homeless, single, with poor family and social support, unemployed, with psychiatric history of depression, anxiety , alcohol use disorder, no previous psychiatric hospitalizations, no previous suicide attempts, history of detox/rehabs, medical history hypertension, lower leg cellulitis, COPD, who comes to the emergency department for psychiatric evaluation after being medically cleared at another [facility]. Patient was accepted in transfer by me. Patient was placed on a [facility]il act for suicidal ideation with a plan of jumping in front of a car. EMR was reviewed. The patient is calm, cooperative, but very tearful, objectively depressed. He says that he has nothing to live for, he feels desperate, hopeless, helpless, worthless, with persistent suicidal ideation with a plan of jumping in front of a car. Patient states he is under a lot of stress due to his economical and home situation, due to the lack of social and family support, has been drinking everyday more and more, he is very concerned over losing his house and becoming homeless. He states that he tried to get into [facility] yesterday for treatment of depression and alcoholism, but was redirected to the hospital. Patient also reports to be in a very dedicated medical condition, he says that his blood pressure has been out of control, he says that he is lower leg cellulitis has been becoming worse. The patient denies homicidal ideation, he denies visual and auditory hallucinations. He is oriented 3, no attention deficit, no fluctuation of consciousness. No loosening of associations, no paranoia, no agitation or aggressive behavior present. The patient reports daily use of alcohol, denies the use of illegal drugs. Tobacco Use In Past 30 Days: Yes How Often Do You Have a Drink Containing Alcohol: 2 to 3 times a week Hospital Course: Patient's hospital course was essentially uneventful patient was transferred to the [address] [place] [address] psych unit his initial depression and irritability vague paranoia gradually softened with us compliance with medication. Over those was some entitlement some neediness that he showed throughout his stay. Though he did denies suicidality homicidality voices or visions. There was an impression given by him that he was starting to get quite comfortable here. In any event by today patient continues to deny suicidality homicidality voice or visions. Is willing to go back to his home to follow up with his primary care physician and to follow up with [facility] medication management - Discharge Discharge Date: 11/12/17 - Discharge Diagnosis (1) Major depressive disorder, recurrent severe without psychotic features Code(s): F33.2 - Major depressive disorder, recurrent severe without psychotic features Status: Acute Discharge Disposition: Home - Discharge Instructions Discharge Diet: Regular Diet Activities You Can Perform: Regular- No Restrictions - Discharge Time > 30 minutes Mental Status Examination Appearance: Appropriate Consciousness: Alert Orientation: x4 Motor Activity: Other (Patient laying in bed) Speech: Unremarkable Language: Adequate Fund of Knowledge: Adequate Attention and Concentration: Adequate Memory: Unremarkable Mood: Other (Euthymic) Affect: Other (Decreased range and intensity) Thought Process & Associations: Intact Thought Content: Appropriate Hallucination Type: None Suicidal Ideation: No (Denies with me today denies willingness to take suicide pill) Suicidal Plan: No Suicidal Intention: No Homicidal Ideation: No Homicidal Plan: No Homicidal Intention: No Insight: Poor Judgment: Poor Discharge/Advance Care Plan - Results Vital Signs: Last Vital Signs Temp 98 F 11/12/17 05:40 Pulse 75 11/12/17 05:40 Resp 14 11/12/17 05:40 BP 104/55 L 11/12/17 05:40 Pulse Ox 94 L 11/12/17 05:40 Lab Results: Laboratory Results Hemoglobin A1c 5.0 % (4.3-6.0) 11/08/17 08:15 Triglycerides 124 mg/dL (42-150) 11/08/17 08:15 Cholesterol 206 mg/dL (120-200) H 11/08/17 08:15 LDL Cholesterol, Calc 132 mg/dL (0-99) H 11/08/17 08:15 HDL Cholesterol 49.6 mg/dL (40.0-60.0) 11/08/17 08:15 Summary of Procedures: None done Imaging: ITS Impressions Venous Doppler Study 11/09/17 00:00 CONCLUSION: 1. Deep venous thrombosis right lower extremity Pending Results: None - Medications Number of antipsychotic medications at discharge: 0 - Discharge Care Plan Goals to Promote Your Health: * To prevent worsening of your condition and complications * To maintain your health at the optimal level Directions to Meet Your Goals: Take your medications as prescribed Follow your dietary instruction Follow activity as directed Keep your appointments as scheduled Take your immunizations and boosters as scheduled If your symptoms worsen call your PCP, if no PCP go to Urgent Care Center or Emergency Room For 19/11 questions related to your inpatient stay or results of tests pending at discharge, please contact Dr. Patrice Mendieta MD at Smoking is Dangerous to Your Health. Avoid second hand smoking
== END 2017-11-12 15:00 | disposition home or self-care (01) ==
LOC: NEPJ 08:22 → NEDA 11-07 13:50 → H4EA 11-07 18:01
PROVIDERS: ADMIT Psychiatry & Neurology Psychiatry; ATTEND Psychiatry & Neurology Psychiatry
DX: F17.210 Nicotine dependence, cigarettes, uncomplicated; L03.115 Cellulitis of right lower limb; J44.9 Chronic obstructive pulmonary disease, unspecified; L03.116 Cellulitis of left lower limb; E78.00 Pure hypercholesterolemia, unspecified; E78.5 Hyperlipidemia, unspecified; Z79.01 Long term (current) use of anticoagulants; F10.10 Alcohol abuse, uncomplicated; Z86.718 Personal history of other venous thrombosis and embolism; F33.2 Major depressive disorder, recurrent severe without psychotic features; F41.9 Anxiety disorder, unspecified; I10 Essential (primary) hypertension; R45.851 Suicidal ideations

== ENCOUNTER 2017-11-29 18:00 | Inpatient (IN) ==
[2017-11-29 19:07] LABS: Baso % (Auto) 0.9 % (0.0-2.0); Eos # (Auto) 0.2 th/mm3 (0.0-0.4); Eos % (Auto) 4.3 % (0.0-4.0); Hematocrit 42.7 % (39.0-51.0); Hemoglobin 14.9 gm/dL (13.0-17.0); Mean Corpuscular HGB Conc 34.8 % (32.0-36.0); Mean Corpuscular Hemoglobin 33.2 pg (27.0-34.0); Mean Corpuscular Volume 95.4 fL (80.0-100.0); Mean Platelet Volume 8.1 fL (7.0-11.0); Mono # (Auto) 0.6 th/mm3 (0.0-0.9); Mono % (Auto) 11.5 % (0.0-8.0); Neut % (Auto) 42.3 % (16.0-70.0); Platelet Count 120 th/mm3 (150-450); Red Blood Count 4.47 mil/mm3 (4.50-5.90); Red Cell Distribution Width 15.5 % (11.6-17.2); White Blood Count 4.8 th/mm3 (4.0-11.0)
--- NOTE | 2017-11-29 19:12 | ED ---
HPI General Chief Complaint: Psychiatric Symptoms Stated Complaint: Psych Eval Time Seen by Provider: 11/29/17 18:30 Source: patient, EMS and police Mode of arrival: EMS Limitations: no limitations History of Present Illness HPI Narrative: Patient is a 56-year-old male presenting to the emergency department under Khalil act for psychiatric evaluation. Patient made statements to his special population paraprofessional that he had thoughts of harming himself. Upon contact with the police patient stated that his mental state is not 100%. But he did not want to harm himself for now. Patient is also been drinking heavily and has been depressed per the Khalil act report. Patient states that he is disabled because of his chronic cellulitis, he cannot stand up for long periods of time. He is trying to get emergency food stamps and Medicaid and Social Security which is why the special population paraprofessional was at his house. Patient reports he drinks one half of a 1.75 L bottle of vodka a day, he has been doing this for a while. 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 Patient has no physical complaints at this time. He denies any suicidal ideations or homicidal ideations. He has no reported hallucinations. Patient states he has been depressed. MD complaint: suicidal ideation and feels depressed Onset (ago): unknown Duration: getting worse History of same: No Relieving factors: none Exacerbating factors: alcohol Context: recent alcohol abuse and significant life stressor Associated psychiatric symptoms: depression Associated symptoms: denies other symptoms Treatments prior to arrival: none If self harm: admits thoughts of self harm Related Data Previous Rx's Medication Instructions Recorded amlodipine 5 mg PO DAILY #30 tab 11/11/17 amoxicillin-pot clavulanate 1 tab PO Q12HR #7 tab 11/11/17 apixaban [Eliquis] 5 mg PO BID #60 tab 11/11/17 apixaban [Eliquis] 10 mg PO BID #6 tab 11/11/17 hydrochlorothiazide 12.5 mg PO DAILY #30 cap 11/11/17 lisinopril 20 mg PO BID #60 tab 11/11/17 pravastatin 20 mg PO HS #30 tab 11/11/17 acidophilus-sporogenes 1 tab PO TID #90 tab 11/12/17 [Acidophilus Ex Str (L. sporog)] famotidine 20 mg PO BID #60 tab 11/12/17 folic acid 1 mg PO DAILY #30 tab 11/12/17 mirtazapine 30 mg PO HS #60 tab 11/12/17 ocqvydyy-gbmx-[place]-calcium-mins 1 tab PO DAILY #30 tab 11/12/17 [Thera M Plus (ferrous fumarat)] thiamine HCl (vitamin B1) 100 mg PO DAILY #30 tab 11/12/17 Allergies Allergy/AdvReac Type Severity Reaction Status Date / Time No Known Allergies Allergy Uncoded 11/09/11 09:16 Review of Systems Except as stated in HPI: all other systems reviewed are negative [facility] Medical History Medical History COPD (chronic obstructive pulmonary disease) (Acute) Dental decay (Acute) Hypertension (Acute) DVT (deep venous thrombosis) (Acute) Chest pain (Acute) High cholesterol (Acute) Social History Social History Substance History: Active Abuse Second Hand Smoke Exposure: No Smoking Status: Never smoker Tobacco Type: Cigarettes How Often Do You Have a Drink Containing Alcohol: 4 or more times a week Hx Recent Travel: No Recent Travel in [facility] within the Last 8 Weeks: No Recent Out of Country Travel within the Last 8 Weeks: No Substance Abuse Detail Alcohol: Substance Use Status: Active Route Used Substance Abuse: By Mouth Reason for Use: Calm Down Immunization History Tetanus Immunization: Unsure Hx Influenza Vaccine This Season: Unable to Assess Exam Narrative Exam Narrative: GENERAL: Morbidly obese male. Presenting in no acute distress. Appears intoxicated. SKIN: Focused skin assessment warm/dry. HEAD: Atraumatic. Normocephalic. EYES: Pupils equal and round. No scleral icterus. No injection or drainage. ENT: No nasal bleeding or discharge. Mucous membranes pink and moist. NECK: Trachea midline. No JVD. CARDIOVASCULAR: Regular rate and rhythm. No murmur appreciated. RESPIRATORY: No accessory muscle use. Scattered expiratory wheezes. Breath sounds equal bilaterally. GASTROINTESTINAL: Abdomen obese, non-tender, nondistended. Hepatic and splenic margins not palpable. MUSCULOSKELETAL: No obvious deformities. No clubbing. No cyanosis. No edema. NEUROLOGICAL: Awake and alert. No obvious cranial nerve deficits. Motor grossly within normal limits. Normal speech. PSYCHIATRIC: Depressed mood and affect; insight and judgment normal. Const General: intoxicated appearing Course Initial Documented Vital Signs Temperature 98.8 F 11/29/17 18:25 Pulse Rate 80 11/29/17 18:25 Respiratory Rate 16 11/29/17 18:25 Blood Pressure 165/80 H 11/29/17 18:25 Pulse Oximetry 100 11/29/17 18:25 Last Documented Vital Signs Temperature 98.8 F 11/29/17 18:25 Pulse Rate 80 11/29/17 18:25 Respiratory Rate 16 11/29/17 18:25 Blood Pressure 165/80 H 11/29/17 18:25 Pulse Oximetry 100 11/29/17 18:25 Medical Decision Making MDM Narrative Medical decision making narrative: Patient presented under Khalil act for psychiatric evaluation. Mental health screening discussed with the patient. Psychiatric screen ordered. Labs and chest x-ray reviewed, no acute findings identified. Patient has been resting comfortably since he arrived. Patient's blood alcohol level is 218. Patient is medically cleared for psychiatric evaluation. Lab Data Result diagrams: 11/29/17 18:40 11/29/17 18:40 Lab Results 11/29/17 11/29/17 11/29/17 Range/Units 18:40 18:40 18:40 WBC 4.8 (4.0-11.0) th/mm3 RBC 4.47 L (4.50-5.90) mil/mm3 Hgb 14.9 (13.0-17.0) gm/dL Hct 42.7 (39.0-51.0) % MCV 95.4 (80.0-100.0) fL MCH 33.2 (27.0-34.0) pg MCHC 34.8 (32.0-36.0) % RDW 15.5 (11.6-17.2) % Plt Count 120 L (150-450) th/mm3 MPV 8.1 (7.0-11.0) fL Neut % (Auto) 42.3 (16.0-70.0) % Lymph % (Auto) 41.0 (9.0-44.0) % [place] % (Auto) 11.5 H (0.0-8.0) % Eos % (Auto) 4.3 H (0.0-4.0) % Baso % (Auto) 0.9 (0.0-2.0) % Neut # (Auto) 2.0 (1.8-7.7) th/mm3 Lymph # (Auto) 2.0 (1.0-4.8) th/mm3 [place] # (Auto) 0.6 (0.0-0.9) th/mm3 Eos # (Auto) 0.2 (0.0-0.4) th/mm3 Baso # (Auto) 0.0 (0.0-0.2) th/mm3 WBC Differential . Differential Comment Auto diff final Sodium 144 (136-145) meq/L Potassium 3.6 (3.5-5.1) meq/L Chloride 106 (98-107) meq/L Carbon Dioxide 25.5 (21.0-32.0) meq/L Anion Gap 13 (5-15) meq/L BUN 12 (7-18) mg/dL Creatinine 0.96 (0.60-1.30) mg/dL Estimated GFR 81 L (>89) mL/min Random Glucose 82 (74-106) mg/dL Calcium 8.3 L (8.5-10.1) mg/dL Total Bilirubin 0.5 (0.2-1.0) mg/dL AST 238 H (15-37) U/L ALT 242 H (12-78) U/L Alkaline Phosphatase 69 (45-117) U/L Total Protein 7.1 (6.4-8.2) g/dL Albumin 3.0 L (3.4-5.0) g/dL TSH 0.475 (0.358-3.740) uIU/mL Serum Alcohol 218 H 215 H (0-5) mg/dL Imaging Data Radiologist's impression: Chest X-Ray 11/29/17 18:31 CONCLUSION: No acute findings. Discharge Plan Discharge Disposition Patient Disposition: 30 Still Patient Discharge Condition Condition: Stable Discharge Details Diagnosis: Medical clearance for psychiatric admission Physicians Team ED Provider: Medina Juarez ED Midlevel Provider: Arlen Vuong Rxs /Orders / Referrals /Forms Prescriptions: No Action hydrochlorothiazide 12.5 mg Capsule 12.5 mg PO DAILY Qty: 30 RF: 0 amoxicillin-pot clavulanate 875-125 mg Tablet 1 tab PO Q12HR Qty: 7 RF: 0 apixaban [Eliquis] 5 mg Tablet 10 mg PO BID Qty: 6 RF: 0 apixaban [Eliquis] 2.5 mg Tablet 5 mg PO BID Qty: 60 RF: 0 amlodipine 5 mg PO DAILY Qty: 30 RF: 0 lisinopril 20 mg PO BID Qty: 60 RF: 0 pravastatin 20 mg PO HS Qty: 30 RF: 0 thiamine HCl (vitamin B1) 100 mg Tablet 100 mg PO DAILY Qty: 30 RF: 0 famotidine 20 mg Tablet 20 mg PO BID Qty: 60 RF: 0 folic acid 1 mg Tablet 1 mg PO DAILY Qty: 30 RF: 0 mirtazapine 15 mg Tablet 30 mg PO HS Qty: 60 RF: 0 acidophilus-sporogenes [Acidophilus Ex Str (L. sporog)] 35 million- 25 million cell Tablet 1 tab PO TID Qty: 90 RF: 0 ttgqzqlj-nepm-BA-calcium-mins [Thera M Plus (ferrous fumarat)] 9 mg iron-400 mcg Tablet 1 tab PO DAILY Qty: 30 RF: 0 Status ED Status: Medically Cleared
[2017-11-29 19:19] LABS: Anion Gap 13 meq/L (5-15); Aspartate Aminotransferase 238 U/L (15-37); Blood Urea Nitrogen 12 mg/dL (7-18); Calcium 8.3 mg/dL (8.5-10.1); Carbon Dioxide 25.5 meq/L (21.0-32.0); Chloride 106 meq/L (98-107); Glomerular Filtration Rate 81 mL/min (>89); Glucose,Random 82 mg/dL (74-106); Potassium 3.6 meq/L (3.5-5.1); Sodium 144 meq/L (136-145)
[2017-11-29 19:20] LABS: Alanine Aminotransferase 242 U/L (12-78)
[2017-11-29 19:30] LABS: Alkaline Phosphatase 69 U/L (45-117); Thyroid Stimulating Hormone 0.475 uIU/mL (0.358-3.740); Total Protein 7.1 g/dL (6.4-8.2)
--- NOTE | 2017-11-29 19:34 | XR ---
EXAM DATE: 11/29/2017 7:19 PM EDT AGE/SEX: 56 years / Male INDICATIONS: COPD. CLINICAL DATA: This is the patient's initial encounter. Patient reports that signs and symptoms have been present for 1 day and indicates a pain score of 0/10. MEDICAL/SURGICAL HISTORY: . Hypertension. Hypercholesterolemia. COPD. Deep vein thrombosis No ne. COMPARISON: No prior exams available for comparison. FINDINGS: A single AP view of the chest demonstrates the lungs to be symmetrically aerated without evidence of mass, infiltrate or effusion. The cardiomediastinal contours are unremarkable. Osseous structures a re intact. CONCLUSION: No acute findings. Electronically signed by: Myles Dcaosta MD 11/29/2017 7:32 PM EDT
[2017-11-29 19:39] LABS: Alcohol 218 mg/dL (0-5)
[2017-11-29 20:49] LABS: Amphetamine Screen,Urine Neg (Neg); Barbiturate Screen,Urine Neg (Neg); Cannabinoid Screen,Urine Neg (Neg); Cocaine Screen,Urine Neg (Neg)
[2017-11-29 20:51] LABS: Bilirubin,Urine Negative (Negative); Clarity,Urine Clear (Clear); Color,Urine Amber (Yellw/Straw); Glucose,Urine (UA) Negative (Negative); Leukocyte Esterase,Urine Negative (Negative); Nitrite,Urine Negative (Negative); Specific Gravity,Urine 1.028 (1.002-1.035); Urobilinogen,Urine 4 or Greater mg/dL (Less than 2)
[2017-11-29 20:54] LABS: Opiate Screen,Urine Neg (Neg)
[2017-11-30] MEDS ORDERED: Aluminum/Magnesium/Simethacone Susp 30 ML UDC PO PRN (02:16)
[2017-11-30] MEDS ORDERED: Acetaminophen 325 MG Tablet PO PRN (02:16)
[2017-11-30] MEDS: LORazepam 1 MG Tablet PO PRN ×3 (02:43→21:33)
[2017-11-30] MEDS: Mirtazapine 15 MG Tablet PO SCH (08:53)
[2017-11-30] MEDS ORDERED: Famotidine 20 MG Tablet PO SCH (09:00)
[2017-11-30] MEDS ORDERED: Lisinopril 20 MG Tablet PO SCH ×2 (09:00)
[2017-11-30] MEDS ORDERED: Folic Acid 1 MG Tablet PO SCH ×2 (09:00)
[2017-11-30] MEDS ORDERED: amLODIPine 5 MG Tablet PO SCH ×2 (09:00)
[2017-11-30 10:03] LABS: Anion Gap 8 meq/L (5-15); Blood Urea Nitrogen 12 mg/dL (7-18); Carbon Dioxide 30.2 meq/L (21.0-32.0); Chloride 104 meq/L (98-107); Glomerular Filtration Rate Greater Than 89 mL/min (>89); Glucose,Random 121 mg/dL (74-106); Potassium 3.6 meq/L (3.5-5.1); Sodium 142 meq/L (136-145)
[2017-11-30 10:04] LABS: Cholesterol 216 mg/dL (120-200); Triglycerides 210 mg/dL (42-150)
[2017-11-30 10:08] LABS: Chol/HDL Ratio 6.05 Ratio; HDL Cholesterol 35.7 mg/dL (40.0-60.0); LDL Cholesterol,Calculated 138 mg/dL (0-99)
[2017-11-30 13:43] LABS: Hemoglobin A1c 5.1 % (4.3-6.0)
--- NOTE | 2017-11-30 14:15 | P.HPPSY ---
Provisional Diagnosis Admission Date: November 30, 2017 00:23 [place] I.: Adjustment disorder with depressed mood, alcohol use disorder Competence Certification of Person's Competence To Provide Express and Informed Consent I have personally examined Guanaco Zhang, a person being served at [facility] on, November 30, 2017 1401. Express and informed consent means consent voluntarily given in writing, by a competent person, after sufficient explanation and disclosure of the subject matter involved to enable the person to make a knowing and willful decision without any element of force, fraud, deceit, duress, or other form of constraint or coercion. This person is 18 years of age or older, is not now known to be incompetent to consent to treatment with a guardian advocate, and does not have a health care surrogate or proxy currently making medical treatment decisions. I have found this person to be one of the following: [xxx] Competent to provide express and informed consent, as defined above, for voluntary admission to this facility and is competent to provide express and informed consent for treatment. He/she has the consistent capacity to make well reasoned, willful, and knowing decisions concerning his or her medical or mental health treatment. The person fully and consistently understands the purpose of the admission for examination/placement and is fully capable of personally exercising all rights assured [place] Incompetent to provide express and informed consent to voluntary admission, and this is incompetent to provide express and informed consent to treatment. The person must be transferred to involuntary status and a petition for a guardian advocate filed with the Circuit Court. [] Refusing to provide express and informed consent to voluntary admission but is competent to provide express and informed consent for treatment. The person must be discharged or transferred to involuntary status. Form shall be completed within 24 hours of a person's arrival at the receiving facility and filed in the clinical record of each person: 1. Admitted on a voluntary basis 2. Permitted to provide express and informed consent to his/her own treatment 3. Allowed to transfer from involuntary to voluntary status 4. Prior to permitting a person to consent to his or her own treatment after having been previously found incompetent to consent to treatment. History of Present Illness Capacity: Has capacity History of Present Illness: Patient is a 57-year-old man, single, no children, currently domiciled , unemployed, with a past psychiatric history of depression and anxiety, alcohol use disorder, 3 previous psychiatric admissions, no previous suicide attempt or self interest behavior with a past medical history significant for hypertension, COPD and chronic cellulitis with significant alcohol use disorder was brought in under Khalil act for psychiatric evaluation as patient had made suicidal statements to construction safety consultant upon visiting his home as well as reporting feeling depressed along with heavy alcohol use which patient was admitted to the inpatient psychiatry unit for further evaluation and management. As per Khalil act patient had made suicidal statements with construction safety consultant. Patient was found lying hospital bed sitting up eating lunch noted to be irritable and superficially cooperative with interview. Patient states that he is feeling "lousy" states that the construction safety consultant had got to his house and Khalil acted him after he made statements regarding suicide. 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 Patient this time continues to endorse suicide ideations and also mentions that he will be losing his home soon. Patient denies any perceptional service of delusions, rest of psychiatric ROS negative. Past psychiatric history: Depression and anxiety, 3 previous psychiatric admissions, recently diagnosed discharged from [facility] in October under the care of Dr. Mendieta, no previous suicide attempt or self injurious behavior. Patient reports having outpatient mental health follow-up through [facility] last seen 3 weeks ago. Past medical history: Hypertension, COPD, chronic cellulitis Substance use history: Tobacco use, daily alcohol use, 1.75 gallons of vodka daily, denies use of any other drugs. Allergies: NKDA Social history: Single, no children, domiciled alone, currently with no income, born and raised in [place], patient reports legal history of felony but did not elaborate. - Inpatient Certification I certify that the inpatient services were ordered in accordance with Medicare regulations governing the order. This includes certification that hospital inpatient services are reasonable and necessary and in the case of services not specified as inpatient-only under 42 CFR 419.22(n), that they are appropriately provided as inpatient services in accordance to with the 2-midnight benchmark under 43 CFR 412.3(e) I certify that inpatient psychiatric hospital services are medically necessary. Evaluation and treatment and/or diagnostic testing are expected to improve the patient's condition. The patient needs on a daily basis, active treatment furnished directly by or requiring the supervision of inpatient psychiatric facility personnel. Estimated Total Length of Stay (Days): 7 Plans for Post Hospital Care: Not yet determined Review of Systems All other systems reviewed negative except as stated in HPI PMFSH - History History Provided By: Patient, Medical Record - Medical History Medical History: Medical History (Last Reviewed 11/29/17 @ 19:15 by JENNIFER Enriquez) COPD (chronic obstructive pulmonary disease) (Acute) Dental decay (Acute) Hypertension (Acute) DVT (deep venous thrombosis) (Acute) Chest pain (Acute) High cholesterol (Acute) - Tobacco History Second Hand Smoke Exposure: No Tobacco Use In Past 30 Days: No Smoking Status: Former smoker Tobacco Type: Cigarettes - Alcohol History How Often Do You Have a Drink Containing Alcohol: 4 or more times a week - Substance Use History Substance History: No History of Abuse - Substance Use Type Alcohol Status: Active Route Used: By Mouth Frequency: ETOH= 215 AT 1830 Reason for Use: Calm Down - Travel History History of Recent Travel: No Recent Travel in the USA Within the Last 8 Weeks: No Recent Travel Out of the Country Within the Last 8 Weeks: No - Immunization History Tetanus Immunization: Unsure Hx Influenza Vaccine This Season: Unable to Assess Quality Measures - Psychiatric History Violence risk to others in the last 6 months: Low Violence risk to self in the last 6 months: Elevated due to recent and ongoing suicidal ideations - Substance Abuse History Drug or alcohol use in the past 12 months: See HPI - Patient Strengths Patient's strengths (minimum of 2): Verbal and communicative Medications and Allergies Active Medications: Active Medications Acetaminophen (Tylenol) 650 mg PO Q4H PRN PRN Reason: Pain 1-5 or Temp >101F Al Hydrox/Mg Hydrox/Simethicone (Mag-Al Plus Susp Liq) 30 ml PO Q6H PRN PRN Reason: DYSPEPSIA Al Hydroxide/Mg Hydroxide (Milk Of Magnesia Liq) 30 ml PO Q12H PRN PRN Reason: Mild Constipation Amlodipine Besylate (Norvasc) 5 mg PO DAILY [facility] Last Admin: 11/30/17 08:52 Dose: 5 mg Diphenhydramine HCl (Benadryl) 50 mg PO HS PRN PRN Reason: INSOMNIA Diphenhydramine HCl (Benadryl Inj) 50 mg IM HS PRN PRN Reason: INSOMNIA Duloxetine HCl (Cymbalta) 20 mg PO DAILY [facility] Famotidine (Pepcid) 20 mg PO BID [facility] Last Admin: 11/30/17 08:52 Dose: 20 mg Flumazenil (Romazecon Inj) 0.2 mg IV.PUSH Q1M PRN PRN Reason: OVERSEDATION Folic Acid (Folic Acid) 1 mg PO DAILY [facility] Last Admin: 11/30/17 08:52 Dose: 1 mg Hydrochlorothiazide (Microzide) 12.5 mg PO DAILY [facility] Hydroxyzine HCl (Atarax) 50 mg PO Q6H PRN PRN Reason: ANXIETY Lisinopril (Prinivil) 20 mg PO BID [facility] Last Admin: 11/30/17 08:50 Dose: 20 mg Lorazepam (Ativan) 1 mg PO Q4H PRN PRN Reason: for CIWA 8-10 Last Admin: 11/30/17 08:52 Dose: 1 mg Lorazepam (Ativan) 2 mg PO Q2H PRN PRN Reason: for CIWA 11-14 Lorazepam (Ativan Inj) 2 mg IV.PUSH Q2H PRN PRN Reason: for CIWA 11-14 Lorazepam (Ativan Inj) 2 mg IV.PUSH Q1H PRN PRN Reason: for CIWA 15-20 Lorazepam (Ativan Inj) 2 mg IV.PUSH Q15M PRN PRN Reason: for CIWA > 20 Lorazepam (Ativan Inj) 1 mg IV.PUSH Q4H PRN PRN Reason: for CIWA 8-10 Mirtazapine (Remeron) 30 mg PO DAILY [facility] Last Admin: 11/30/17 08:53 Dose: 30 mg Multivitamins (Theragran) 1 tab PO DAILY [facility] Last Admin: 11/30/17 08:51 Dose: 1 tab Nicotine (Habitrol 21 Mg Patch.24 Hr) 1 patch T-DERMAL DAILY [facility] Last Admin: 11/30/17 12:38 Dose: Not Given Patch Removal (Remove Old Patch) 1 each T-DERMAL HS [facility] Pravastatin Sodium (Pravachol) 20 mg PO HS [facility] Thiamine HCl (Vitamin B1) 100 mg PO DAILY [facility] Last Admin: 11/30/17 08:51 Dose: 100 mg Allergies Allergy/AdvReac Type Severity Reaction Status Date / Time No Known Allergies Allergy Uncoded 11/09/11 09:16 Results - Labs CBC & Chem 7: 11/29/17 18:40 11/30/17 08:50 Labs: Laboratory Results - last 24 hr 11/29/17 11/29/17 11/29/17 18:40 18:40 18:40 WBC 4.8 RBC 4.47 L Hgb 14.9 Hct 42.7 MCV 95.4 MCH 33.2 MCHC 34.8 RDW 15.5 Plt Count 120 L MPV 8.1 Neut % (Auto) 42.3 Lymph % (Auto) 41.0 [place] % (Auto) 11.5 H Eos % (Auto) 4.3 H Baso % (Auto) 0.9 Neut # (Auto) 2.0 Lymph # (Auto) 2.0 [place] # (Auto) 0.6 Eos # (Auto) 0.2 Baso # (Auto) 0.0 WBC Differential . Differential Comment Auto diff final Sodium 144 Potassium 3.6 Chloride 106 Carbon Dioxide 25.5 Anion Gap 13 BUN 12 Creatinine 0.96 Estimated GFR 81 L Random Glucose 82 Hemoglobin A1c Calcium 8.3 L Total Bilirubin 0.5 AST 238 H ALT 242 H Alkaline Phosphatase 69 Total Protein 7.1 Albumin 3.0 L Triglycerides Cholesterol LDL Cholesterol, Calc HDL Cholesterol Cholesterol/HDL Ratio TSH 0.475 Urine Color Urine Clarity Urine pH Ur Specific [place] Urine Protein Urine Glucose (UA) Urine Ketones Urine Occult Blood Urine Nitrate Urine Bilirubin Urine Urobilinogen Ur Leukocyte Esterase Urine RBC Urine WBC Micro UA Comment Urine Culture Comments Urine Opiates Screen Ur Barbiturates Screen Ur Amphetamines Screen U Benzodiazepines Scrn Urine Cocaine Screen U Cannabinoids Screen Serum Alcohol 218 H 215 H 11/29/17 11/29/17 11/30/17 20:00 20:00 08:50 WBC RBC Hgb Hct MCV MCH MCHC RDW Plt Count MPV Neut % (Auto) Lymph % (Auto) [place] % (Auto) Eos % (Auto) Baso % (Auto) Neut # (Auto) Lymph # (Auto) [place] # (Auto) Eos # (Auto) Baso # (Auto) WBC Differential Differential Comment Sodium 142 Potassium 3.6 Chloride 104 Carbon Dioxide 30.2 Anion Gap 8 BUN 12 Creatinine 0.81 Estimated GFR Greater than 89 Random Glucose 121 H Hemoglobin A1c Calcium 8.0 L Total Bilirubin AST ALT Alkaline Phosphatase Total Protein Albumin Triglycerides 210 H Cholesterol 216 H LDL Cholesterol, Calc 138 H HDL Cholesterol 35.7 L Cholesterol/HDL Ratio 6.05 TSH Urine Color [place] Urine Clarity Clear Urine pH 5.0 Ur Specific [place] 1.028 Urine Protein 30 H Urine Glucose (UA) Negative Urine Ketones Trace Urine Occult Blood Negative Urine Nitrate Negative Urine Bilirubin Negative Urine Urobilinogen 4 or greater Ur Leukocyte Esterase Negative Urine RBC Less than 1 Urine WBC 1 Micro UA Comment Culture not ind Urine Culture Comments Culture not ind Urine Opiates Screen Neg Ur Barbiturates Screen Neg Ur Amphetamines Screen Neg U Benzodiazepines Scrn Neg Urine Cocaine Screen Neg U Cannabinoids Screen Neg Serum Alcohol 11/30/17 08:50 WBC RBC Hgb Hct MCV MCH MCHC RDW Plt Count MPV Neut % (Auto) Lymph % (Auto) [place] % (Auto) Eos % (Auto) Baso % (Auto) Neut # (Auto) Lymph # (Auto) [place] # (Auto) Eos # (Auto) Baso # (Auto) WBC Differential Differential Comment Sodium Potassium Chloride Carbon Dioxide Anion Gap BUN Creatinine Estimated GFR Random Glucose Hemoglobin A1c 5.1 Calcium Total Bilirubin AST ALT Alkaline Phosphatase Total Protein Albumin Triglycerides Cholesterol LDL Cholesterol, Calc HDL Cholesterol Cholesterol/HDL Ratio TSH Urine Color Urine Clarity Urine pH Ur Specific [place] Urine Protein Urine Glucose (UA) Urine Ketones Urine Occult Blood Urine Nitrate Urine Bilirubin Urine Urobilinogen Ur Leukocyte Esterase Urine RBC Urine WBC Micro UA Comment Urine Culture Comments Urine Opiates Screen Ur Barbiturates Screen Ur Amphetamines Screen U Benzodiazepines Scrn Urine Cocaine Screen U Cannabinoids Screen Serum Alcohol - Imaging Impressions Chest X-Ray 11/29/17 18:31 CONCLUSION: No acute findings. Exam Vital signs: Vital Signs 11/29/17 18:25 11/29/17 21:26 11/30/17 02:20 Temperature 98.8 F 97.9 F Pulse Rate 80 88 89 Respiratory Rate 16 16 18 Blood Pressure 165/80 H 127/71 170/110 H Pulse Oximetry 100 94 L 93 L 11/30/17 05:42 Temperature 97.2 F L Pulse Rate 76 Respiratory Rate 22 Blood Pressure 175/86 H Pulse Oximetry 95 Intake & Output 11/29/17 11/30/17 11/30/17 18:59 06:59 18:59 Intake Total 240 / 240 Balance 240 / 240 Weight 81.647 kg 167.1 kg Intake: Oral 240 / 240 Other: Weight On Admission 167.1 kg Narrative: Patient not noted to be in acute distress, no gross motor abnormalities, no tremors or EPS, no noted psychomotor retardation or agitation. Mental Status Examination Appearance: Disheveled Consciousness: Alert Orientation: Person, Place, Date/Time Speech: Unremarkable Language: Adequate Fund of Knowledge: Inadequate Attention and Concentration: Adequate Memory: Unremarkable Mood: Irritable Affect: Irritable Thought Process & Associations: Intact, Linear Thought Content: Appropriate Hallucination Type: None Delusion Type: None Suicidal Ideation: Yes Suicidal Plan: No Suicidal Intention: No Homicidal Ideation: No Homicidal Plan: No Homicidal Intention: No Insight: Fair Judgment: Impulsive Assessment and Plan - Assessment (1) Adjustment disorder with depressed mood Code(s): F43.21 - Adjustment disorder with depressed mood Status: Acute (2) Alcohol use disorder Code(s): F10.20 - Alcohol dependence, uncomplicated Status: Acute - Plan Plan: Estimated LOS: [] days Patient is a 57-year-old man who carries a diagnosis of depression and anxiety, alcohol use disorder, previous psychiatric admissions recently discharged from [facility] in October 2017, admitted under Khalil act after having made suicidal statements to his construction safety consultant which patient continues to endorse at this time and requires psychiatric inpatient stabilization. Patient will be admitted under voluntary admission, has capacity to consent for treatment. We will start patient on duloxetine 20 mg p.o. daily with upper titration once hepatic function begins to improve, continue mirtazapine 30 mg p.o. at bedtime for depression. Patient to continue CIWA protocol, withdrawal precautions. We will continue to monitor mood and behavior. Hospitalist input appreciated. Discharge planning a progress. Justification for Continued Inpatient Stay: At risk of further decompensation a lower level of care.
--- NOTE | 2017-11-30 17:30 | P.CON ---
History of Present Illness Service: Hospitalist Consult date: 11/30/17 Requesting Physician: Patrice Mendieta Reason for Consult: Medical Managment Primary Care Provider: UNKNOWN Chief Complaint: Unsure of Eliquis dose History of Present Illness: Patient is a 56-year-old man who presented to the emergency room after being told to come in by his residential case manager. EtOH was over 200 at admit. Includes depression. he has a past medical history of hypertension, COPD, DVTs and bilateral lower leg edema and cellulitis. He was recently admitted for similar; at that time he was found to have a DVT in his right lower leg. Noted to have also been previously diagnosed with a left leg nonocclusive DVT at [facility]; DVT was not found on repeat US. He is seen lying comfortably in bed. He tells me that he has no new concerns or complaints. Continues to struggle with leg swelling and numbness and tingling. No new or different swelling. No chest pain or shortness of breath. No nausea vomiting or diarrhea. He cannot remember what dose of Eliquis he was discharged on but he does tell me that he was taking it consistently. Review of Systems All other systems reviewed negative except as stated in HPI PMFSH - History History Provided By: Patient, Medical Record - Medical History Medical History: Medical History (Last Reviewed 11/30/17 @ 17:26 by JENNIFER Renee) COPD (chronic obstructive pulmonary disease) (Acute) Dental decay (Acute) Hypertension (Acute) DVT (deep venous thrombosis) (Acute) Chest pain (Acute) High cholesterol (Acute) Surgical history unknown - Family History Family History: Family History (Last Reviewed 11/30/17 @ 17:26 by JENNIFER Renee) Other Family history unknown - Tobacco History Second Hand Smoke Exposure: No Tobacco Use In Past 30 Days: No Smoking Status: Former smoker Tobacco Type: Cigarettes - Alcohol History How Often Do You Have a Drink Containing Alcohol: 4 or more times a week - Substance Use History Substance History: No History of Abuse - Substance Use Type Alcohol Status: Active Route Used: By Mouth Frequency: ETOH= 215 AT 1830 Reason for Use: Calm Down - Travel History History of Recent Travel: No Recent Travel in the [place] Within the Last 8 Weeks: No Recent Travel Out of the Country Within the Last 8 Weeks: No - Immunization History Tetanus Immunization: Unsure Hx Influenza Vaccine This Season: Unable to Assess Medications and Allergies Active Medications: Active Medications Al Hydrox/Mg Hydrox/Simethicone (Mag-Al Plus Susp Liq) 30 ml PO Q6H PRN PRN Reason: DYSPEPSIA Al Hydroxide/Mg Hydroxide (Milk Of Magnesia Liq) 30 ml PO Q12H PRN PRN Reason: Mild Constipation Amlodipine Besylate (Norvasc) 5 mg PO DAILY [facility] Apixaban (Eliquis) 5 mg PO BID [facility] Diphenhydramine HCl (Benadryl) 50 mg PO HS PRN PRN Reason: INSOMNIA Diphenhydramine HCl (Benadryl Inj) 50 mg IM HS PRN PRN Reason: INSOMNIA Duloxetine HCl (Cymbalta) 20 mg PO DAILY [facility] Famotidine (Pepcid) 20 mg PO BID [facility] Flumazenil (Romazecon Inj) 0.2 mg IV.PUSH Q1M PRN PRN Reason: OVERSEDATION Folic Acid (Folic Acid) 1 mg PO DAILY [facility] Hydrochlorothiazide (Microzide) 12.5 mg PO DAILY [facility] Hydroxyzine HCl (Atarax) 50 mg PO Q6H PRN PRN Reason: ANXIETY Lisinopril (Prinivil) 20 mg PO BID [facility] Lorazepam (Ativan) 1 mg PO Q4H PRN PRN Reason: for CIWA 8-10 Last Admin: 11/30/17 08:52 Dose: 1 mg Lorazepam (Ativan) 2 mg PO Q2H PRN PRN Reason: for CIWA 11-14 Lorazepam (Ativan Inj) 2 mg IV.PUSH Q2H PRN PRN Reason: for CIWA 11-14 Lorazepam (Ativan Inj) 2 mg IV.PUSH Q1H PRN PRN Reason: for CIWA 15-20 Lorazepam (Ativan Inj) 2 mg IV.PUSH Q15M PRN PRN Reason: for CIWA > 20 Lorazepam (Ativan Inj) 1 mg IV.PUSH Q4H PRN PRN Reason: for CIWA 8-10 Mirtazapine (Remeron) 30 mg PO DAILY [facility] Last Admin: 11/30/17 08:53 Dose: 30 mg Multivitamins/Minerals (Theragran-M) 1 tab PO DAILY [facility] Nicotine (Habitrol 21 Mg Patch.24 Hr) 1 patch T-DERMAL DAILY [facility] Last Admin: 11/30/17 12:38 Dose: Not Given Patch Removal (Remove Old Patch) 1 each T-DERMAL HS [facility] Pravastatin Sodium (Pravachol) 20 mg PO HS [facility] Thiamine HCl (Vitamin B1) 100 mg PO DAILY [facility] Allergies Allergy/AdvReac Type Severity Reaction Status Date / Time No Known Allergies Allergy Uncoded 11/09/11 09:16 Physical Exam Vital signs: Vital Signs 11/29/17 18:25 11/29/17 21:26 11/30/17 02:20 Temperature 98.8 F 97.9 F Pulse Rate 80 88 89 Respiratory Rate 16 16 18 Blood Pressure 165/80 H 127/71 170/110 H Pulse Oximetry 100 94 L 93 L 11/30/17 05:42 Temperature 97.2 F L Pulse Rate 76 Respiratory Rate 22 Blood Pressure 175/86 H Pulse Oximetry 95 Intake & Output 11/29/17 11/30/17 11/30/17 18:59 06:59 18:59 Intake Total 240 / 240 Balance 240 / 240 Weight 81.647 kg 167.1 kg Intake: Oral 240 / 240 Other: Date of Last Bowel Movement 11/30/17 Weight On Admission 167.1 kg Narrative: GENERAL: Well-nourished, well-developed adult male in no obvious distress. HEAD: Atraumatic. Normocephalic. CARDIOVASCULAR: Regular rate and rhythm. RESPIRATORY: No accessory muscle use. Clear to auscultation. Breath sounds equal bilaterally. GASTROINTESTINAL: Abdomen soft, non-tender, distended. Positive bowel sounds. MUSCULOSKELETAL: Bilateral lower legs with tri and thickened skin. Edema +2. no obvious deformities. NEUROLOGICAL: Awake and alert. No obvious cranial nerve deficits. Motor grossly within normal limits. Normal speech. Assessment and Plan - Plan 56-year-old male with past medical history of DVTs, COPD, chest pain, HLD, HTN, tobacco abuse and alcohol use who was instructed to go to the emergency room by his residential case manager. [facility] consulted for medical manage -primarily for clarification of Eliquis dose. Bilateral lower extremity cellulitis -Patient recently treated with p.o. Augmentin, improvement in erythema. Hx DVT + RLE DVT -Patient reports he is has a positive history of multiple DVTs in the past, has been on Coumadin for anticoagulation although reports this is not a preferred method for him due to lab test associated with Coumadin. Was recently [facility] with left leg nonocclusive DVT treated with Xarelto. -Bilateral lower extremity ultrasound with positive DVT in her right lower extremity. -Initially given Eliquis 10 mg twice daily 7 days, discharge and maintenance dose is Eliquis 5mg BID. Restart 5 mg twice daily. -Patient previously applied for patient assistance, nurse to discuss with residential case manager regarding possible prescription once cleared by psychiatry. Hypertension Hyperlipidemia -Continue Norvasc 5 mg daily, lisinopril 20 mg twice daily, hydrochlorothiazide 12.5 daily -BP improved, continue current medications. Tobacco/alcohol abuse -Cessation encouraged, CIWA protocol, continue multivitamin, thiamine, folic acid DVT prophylaxis-Eliquis Discussed Condition With: Patient and RN Patient appears to be medically stable. Hospitalist will sign off at this time. Please reconsult if needed
[2017-11-30] MEDS: Lisinopril 20 MG Tablet PO SCH (21:31)
[2017-12-01] MEDS: Famotidine 20 MG Tablet PO SCH ×3 (05:00→21:04)
[2017-12-01] MEDS: LORazepam 1 MG Tablet PO PRN ×3 (05:07→21:10)
--- NOTE | 2017-12-01 08:56 | US ---
EXAM DATE: 12/01/2017 8:48 AM EDT AGE/SEX: 57 years / Male INDICATIONS: Elevated lab values. CLINICAL DATA: This is the patient's initial encounter. Patient reports that signs and symptoms have been present for 1 day and indicates a pain score of 0/10. MEDICAL/SURGICAL HISTORY: Chronic obstructive pulmonary disease. Hypercholesterolemia. Hypert ension. Chest pain. Deep vein thrombosis. None. COMPARISON: No prior exams available for comparison. MEASUREMENTS: Liver:__ 22.1 cm. Common Bile Duct:__ 5mm. Right Kidney:__ 13.0 x 5.6 x 5.7 cm. FINDINGS: Liver: The liver is enlarged and demonstrates heterogeneous increased echotexture with poor sound tra nsmission consistent with fatty infiltration. Small well-circumscribed 1 cm cyst identified within th e left lobe. No evidence of concerning mass or biliary obstruction. Portal Vein: Hepatopedal flow seen in portal vein. Common Duct: No intraluminal mass or stone visualized. Gallbladder: Demonstrates no wall thickening or pericholecystic fluid. No stones visualized. Pancreas: Not well visualized. Right Kidney: Normal echotexture and cortical thickness. No mass or hydronephrosis. Other: None. CONCLUSION: 1. Mild hepatomegaly with fatty infiltration. Electronically signed by: Idania Luo MD 12/01/2017 8:55 AM EDT
[2017-12-01] MEDS: Mirtazapine 15 MG Tablet PO SCH (09:02)
[2017-12-01] MEDS: Multivitamin/Minerals Therapeutic Tablet PO SCH (09:03)
[2017-12-01] MEDS: Lisinopril 20 MG Tablet PO SCH ×2 (09:04→21:04)
[2017-12-01] MEDS: amLODIPine 5 MG Tablet PO SCH (09:04)
[2017-12-01] MEDS: Folic Acid 1 MG Tablet PO SCH (09:05)
--- NOTE | 2017-12-01 19:25 | P.PNPSY ---
Subjective Remarks: Reviewed electronic medical records and discussed case with staff. Follow-up was conducted in patient's room. Prior to my interviewing him for follow-up his nurse advised me that he had a blood pressure 178/108 despite having been given Ativan approximately an hour earlier as well as taking his maintenance hypertension medications. I ordered 0.1 mg clonidine p.o. 1 time dose. Not sure at this point whether this is still withdrawal symptoms or due to the external stressors in his life or he needs a medication adjustment on his antihypertensives. Patient was found lying in his bed reports that he is not sleeping really great but not really bad either, he relates his difficulty with sleeping to the neuropathy in his legs.. He states that his appetite is been good. He continues to ruminate on his external stressors. States that he has no income he is concerned about losing his house. His mood is sad his affect is rather flat. Mental Status Examination Appearance: Disheveled Consciousness: Alert Orientation: Person, Place, Date/Time Speech: Unremarkable Language: Adequate Fund of Knowledge: Inadequate Attention and Concentration: Adequate Memory: Unremarkable Mood: Irritable Affect: Irritable Thought Process & Associations: Intact, Linear Thought Content: Appropriate Hallucination Type: None Delusion Type: None Suicidal Ideation: Yes Suicidal Plan: No Suicidal Intention: No Homicidal Ideation: No Homicidal Plan: No Homicidal Intention: No Insight: Fair Judgment: Impulsive Assessment and Plan - Assessment (1) Adjustment disorder with depressed mood Code(s): F43.21 - Adjustment disorder with depressed mood Status: Acute - Plan Plan: Patient will be reevaluated tomorrow by the attending psychiatrist. Continue with current treatment plan. Justification for Continued Inpatient Stay: Moving this patient to a less restrictive environment would likely result in decompensation.
[2017-12-02] MEDS: LORazepam 1 MG Tablet PO PRN ×3 (01:22→21:00)
[2017-12-02] MEDS: Lisinopril 20 MG Tablet PO SCH ×2 (10:16→21:00)
[2017-12-02] MEDS: Multivitamin/Minerals Therapeutic Tablet PO SCH (10:16)
[2017-12-02] MEDS: amLODIPine 5 MG Tablet PO SCH (10:16)
[2017-12-02] MEDS: Famotidine 20 MG Tablet PO SCH ×2 (10:17→21:00)
[2017-12-02] MEDS: Folic Acid 1 MG Tablet PO SCH (10:17)
[2017-12-02] MEDS: Mirtazapine 15 MG Tablet PO SCH (10:17)
--- NOTE | 2017-12-02 16:36 | P.PNPSY ---
Subjective Remarks: Patient seen for follow, chart reviewed. Discussion nursing staff reported the patient continues report feeling helpless and hopeless, continues to be irritable and sarcastic and stated that he did not mean that he wanted to kill himself stated that he just got frustrated. Patient scoring 5 on CIWA protocol. Patient was found lying hospital bed watching television noted to be calm and cooperative. Patient is noted to be somewhat irritable and sarcastic during interview but less compared to initial evaluation. Patient states that he is weekend went "okay" continues report feeling depressed stating that he will not have any place to live feels he has no support. Patient reports tolerating medications well reported having some difficulty sleeping due to his roommate's snoring last night. He states despite this he states has noticed having slept better compared to when he was home stating that he would just drink and pass out. Reports adequate appetite and states that he plans on reach out to his brother Noelle for possible support. Review of Systems All other systems reviewed negative except as stated in HPI Mental Status Examination Appearance: Disheveled Consciousness: Alert Orientation: Person, Place, Date/Time Speech: Unremarkable Language: Adequate Fund of Knowledge: Inadequate Attention and Concentration: Adequate Memory: Unremarkable Mood: Irritable (lessening) Affect: Irritable (lessening) Thought Process & Associations: Intact, Linear Thought Content: Appropriate Hallucination Type: None Delusion Type: None Suicidal Ideation: No Suicidal Plan: No Suicidal Intention: No Homicidal Ideation: No Homicidal Plan: No Homicidal Intention: No Insight: Fair Judgment: Impulsive Assessment and Plan - Assessment (1) Adjustment disorder with depressed mood Code(s): F43.21 - Adjustment disorder with depressed mood Status: Acute (2) Alcohol use disorder Code(s): F10.20 - Alcohol dependence, uncomplicated Status: Acute - Plan Plan: Patient continue with irritability, continues to feel hopeless due to his current psychosocial circumstances a continues report feeling depressed but denying any suicide ideations today. Patient tolerated medications well. Continue current treatment. Continue to monitor mood and behavior. Continue CIWA protocol. Discharge planning a progress. Justification for Continued Inpatient Stay: At risk for further decompensation if at lower level of care
[2017-12-03] MEDS: LORazepam 1 MG Tablet PO PRN ×3 (03:24→21:04)
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
[2017-12-03] MEDS: amLODIPine 5 MG Tablet PO SCH (09:36)
[2017-12-03] MEDS: Folic Acid 1 MG Tablet PO SCH (09:36)
[2017-12-03] MEDS: Famotidine 20 MG Tablet PO SCH ×2 (09:36→21:04)
[2017-12-03] MEDS: Multivitamin/Minerals Therapeutic Tablet PO SCH (09:37)
[2017-12-03] MEDS: Mirtazapine 15 MG Tablet PO SCH (09:37)
[2017-12-03] MEDS: Lisinopril 20 MG Tablet PO SCH ×2 (09:37→21:04)
[2017-12-04 06:05] VITALS: BP 114/78; PULSE 80; RESP 16; TEMP 98.1; O2SAT 93
[2017-12-04] MEDS: Famotidine 20 MG Tablet PO SCH (08:43)
[2017-12-04] MEDS: Lisinopril 20 MG Tablet PO SCH (08:43)
[2017-12-04] MEDS: Multivitamin/Minerals Therapeutic Tablet PO SCH (08:43)
[2017-12-04] MEDS: amLODIPine 5 MG Tablet PO SCH (08:44)
[2017-12-04] MEDS: Mirtazapine 15 MG Tablet PO SCH (08:44)
[2017-12-04] MEDS: Folic Acid 1 MG Tablet PO SCH (08:44)
[2017-12-04] MEDS: LORazepam 1 MG Tablet PO PRN (08:51)
--- NOTE | 2017-12-04 20:06 | P.DSPSY ---
Psychiatry Discharge Summary Inpatient Psychiatric care?: Yes Advance Directives: Yes Mental Health Advance Directive: No Health Care Proxy: No - Admission Admission Date: November 30, 2017 00:23 - Admission Diagnosis (1) Adjustment disorder with depressed mood Code(s): F43.21 - Adjustment disorder with depressed mood Brief History: Patient is a 57-year-old man, single, no children, currently domiciled , unemployed, with a past psychiatric history of depression and anxiety, alcohol use disorder, 3 previous psychiatric admissions, no previous suicide attempt or self interest behavior with a past medical history significant for hypertension, COPD and chronic cellulitis with significant alcohol use disorder was brought in under Khalil act for psychiatric evaluation as patient had made suicidal statements to shop repairer upon visiting his home as well as reporting feeling depressed along with heavy alcohol use which patient was admitted to the inpatient psychiatry unit for further evaluation and management. As per [place] act patient had made suicidal statements with shop repairer. Patient was found lying hospital bed sitting up eating lunch noted to be irritable and superficially cooperative with interview. Patient states that he is feeling "lousy" states that the shop repairer had got to his house and Khalil acted him after he made statements regarding suicide. 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 Patient reports having decreased sleep, appetite, energy concentration along with having suicide ideations for the past couple of months which began when he lost his last job as a solo truck driver. Patient this time continues to endorse suicide ideations and also mentions that he will be losing his home soon. Patient denies any perceptional service of delusions, rest of psychiatric ROS negative. Past psychiatric history: Depression and anxiety, 3 previous psychiatric admissions, recently diagnosed discharged from [facility] in October under the care of Dr. Mendieta, no previous suicide attempt or self injurious behavior. Patient reports having outpatient mental health follow-up through [facility] last seen 3 weeks ago. Past medical history: Hypertension, COPD, chronic cellulitis Substance use history: Tobacco use, daily alcohol use, 1.75 gallons of vodka daily, denies use of any other drugs. Allergies: NKDA Social history: Single, no children, domiciled alone, currently with no income, born and raised in [place], patient reports legal history of felony but did not elaborate. Tobacco Use In Past 30 Days: No How Often Do You Have a Drink Containing Alcohol: 4 or more times a week Hospital Course: Patient is a 57-year-old man, single, no children, currently domiciled , unemployed, with a past psychiatric history of depression and anxiety, alcohol use disorder, 3 previous psychiatric admissions, no previous suicide attempt or self interest behavior with a past medical history significant for hypertension, COPD and chronic cellulitis with significant alcohol use disorder was brought in under Khalil act for psychiatric evaluation as patient had made suicidal statements to shop repairer upon visiting his home as well as reporting feeling depressed along with heavy alcohol use which patient was admitted to the inpatient psychiatry unit for further evaluation and management. Patient was resumed on mirtazapine 30mg PO HS and started on duloxetine 20mg PO daily along with medications for chronic medical issues which patient tolerated well and noted to be calm and cooperative with staff. Patient was noted with improvement in mood, not noted to have any aggressive behavior although noted with occasional irritability, cessation of suicidal ideations through admission. He was observed by staff to not have had any behavioral disturbances , and maintained stable mood through admission and was noted to participate with staff adequately. Patient was noted to participate in self care, engaging with staff and maintained compliance with treatment. Patient reported feeling more hopeful, future oriented and motivated to continue to remain sobriety from alcohol use and continue with outpatient follow up. Treatment team was able to set up outpatient follow up appointments which the patient can continue current medication regimen. Upon discharge patient stated that he was feeling ok, reported feeling well with the treatment, as well as motivation to continue recommendations and denied any SI, HI, perceptual disturbances or delusions. Weighing the acute, chronic, and protective factors and based on the available evidence, I telex operator to a reasonable degree of medical certainty that the patient is at low imminent risk of harm to self or others from a mental illness as defined under the Khalil act and his level of function is adequate as observed on the unit for planned level of outpatient care. Patient was counseled regarding warning signs for need to return to the psychiatric emergency room as part of a general safety plan. Patient advised to call 911 or go nearest ED in case of emergency. Patient agreed with plan. - Discharge Discharge Date: 12/04/17 - Discharge Diagnosis (1) Adjustment disorder with depressed mood Code(s): F43.21 - Adjustment disorder with depressed mood Status: Acute Discharge Disposition: Home - Discharge Instructions Discharge Diet: Heart Healthy Diet Activities You Can Perform: Weight Bearing As Tolerat - Discharge Time > 30 minutes Mental Status Examination Appearance: Appropriate Consciousness: Alert Orientation: Person, Place, Date/Time Speech: Unremarkable Language: Adequate Fund of Knowledge: Inadequate Attention and Concentration: Adequate Memory: Unremarkable Mood: Appropriate Affect: Appropriate Thought Process & Associations: Intact, Goal directed, Linear Thought Content: Appropriate Hallucination Type: None Delusion Type: None Suicidal Ideation: No Suicidal Plan: No Suicidal Intention: No Homicidal Ideation: No Homicidal Plan: No Homicidal Intention: No Insight: Fair Judgment: Impulsive Discharge/Advance Care Plan - Results Vital Signs: Last Vital Signs Temp 98.1 F 12/04/17 06:00 Pulse 80 12/04/17 06:00 Resp 16 12/04/17 06:00 BP 114/78 12/04/17 06:00 Pulse Ox 93 L 12/04/17 10:00 Lab Results: Laboratory Results Hemoglobin A1c 5.1 % (4.3-6.0) 11/30/17 08:50 Triglycerides 210 mg/dL (42-150) H 11/30/17 08:50 Cholesterol 216 mg/dL (120-200) H 11/30/17 08:50 LDL Cholesterol, Calc 138 mg/dL (0-99) H 11/30/17 08:50 HDL Cholesterol 35.7 mg/dL (40.0-60.0) L 11/30/17 08:50 TSH 0.475 uIU/mL (0.358-3.740) 11/29/17 18:40 Urine Culture Comments Culture not ind 11/29/17 20:00 Summary of Procedures: none Imaging: ITS Impressions Chest X-Ray 11/29/17 18:31 CONCLUSION: No acute findings. Liver Ultrasound 12/01/17 00:00 CONCLUSION: 1. Mild hepatomegaly with fatty infiltration. Pending Results: None - Medications Number of antipsychotic medications at discharge: 0 - Discharge Care Plan Goals to Promote Your Health: * To prevent worsening of your condition and complications * To maintain your health at the optimal level Directions to Meet Your Goals: Take your medications as prescribed Follow your dietary instruction Follow activity as directed Keep your appointments as scheduled Take your immunizations and boosters as scheduled If your symptoms worsen call your PCP, if no PCP go to Urgent Care Center or Emergency Room For 19/11 questions related to your inpatient stay or results of tests pending at discharge, please contact Dr. Lauro Finnegan MD at Smoking is Dangerous to Your Health. Avoid second hand smoking
== END 2017-12-04 17:00 | disposition home or self-care (01) ==
LOC: NEPE 18:00 → NEDA 11-30 00:23 → H4EA 11-30 01:47
PROVIDERS: ADMIT Student in an Organized Health Care Education/Training Program; ATTEND Student in an Organized Health Care Education/Training Program

== ENCOUNTER 2017-12-26 19:04 | Observation (INO) ==
[2017-12-27 05:14] LABS: Baso % (Auto) 1.1 % (0.0-2.0); Eos # (Auto) 0.1 th/mm3 (0.0-0.4); Eos % (Auto) 2.7 % (0.0-4.0); Hematocrit 40.3 % (39.0-51.0); Hemoglobin 13.9 gm/dL (13.0-17.0); Lymph % (Auto) 23.9 % (9.0-44.0); Mean Corpuscular HGB Conc 34.6 % (32.0-36.0); Mean Corpuscular Hemoglobin 33.6 pg (27.0-34.0); Mean Corpuscular Volume 97.1 fL (80.0-100.0); Mean Platelet Volume 8.1 fL (7.0-11.0); Mono # (Auto) 0.5 th/mm3 (0.0-0.9); Neut # (Auto) 2.6 th/mm3 (1.8-7.7); Neut % (Auto) 60.3 % (16.0-70.0); Platelet Count 129 th/mm3 (150-450); Red Blood Count 4.15 mil/mm3 (4.50-5.90); Red Cell Distribution Width 15.2 % (11.6-17.2); White Blood Count 4.3 th/mm3 (4.0-11.0)
[2017-12-27 05:26] LABS: Prothrombin Time 10.1 sec (9.8-11.6)
[2017-12-27] MEDS ORDERED: Ketorolac Inj 30 MG/ML (IVP) Vial IV.PUSH ONE (05:31)
--- NOTE | 2017-12-27 05:31 | ED ---
HPI General Chief complaint: Extremity Problem,Nontraumatic Stated complaint: SOb, pain in legs Time Seen by Provider: 12/26/17 22:10 History of Present Illness HPI narrative: Patient says he is coming to the ER because he was trying to get him to [facility] and he said he was too medically unstable to be admitted directly. Patient has history of DVTs for many years for which he has been on Coumadin but he was on aspirin Plavix now he is on Eliquis however he has not been taking over the last few days. He says he has not taken it because he has been drinking heavily he did not want to take it and he also is having some bleeding hematuria. His main complaint is his leg on the left is hurting severely. November 10 he had an ultrasound that showed a right DVT was there but the left had recannulized. The Eliquis does not be taken for over a week he has been been drinking for over a week. He is feeling tremulous shaky wants detox and also thinks his leg left is hurting severely 8/10 pain reported Related Data Previous Rx's Medication Instructions Recorded amlodipine [Norvasc] 5 mg PO DAILY 30 Days #30 tab 12/04/17 duloxetine [Cymbalta] 20 mg PO DAILY 30 Days #30 cap 12/04/17 famotidine 20 mg PO BID 30 Days #60 tab 12/04/17 hydrochlorothiazide 12.5 mg PO DAILY 30 Days #30 cap 12/04/17 lisinopril 20 mg PO BID 30 Days #60 tab 12/04/17 mirtazapine 30 mg PO DAILY 30 Days #60 tab 12/04/17 pravastatin 20 mg PO HS 30 Days #60 tab 12/04/17 apixaban [Eliquis] 5 mg PO BID 30 Days #60 tab 12/28/17 Allergies Allergy/AdvReac Type Severity Reaction Status Date / Time No Known Allergies Allergy Verified 12/26/17 22:03 Pediatric Review of Systems All systems: reviewed and negative except as stated PMFSH Social History Social History Substance History: No History of Abuse Second Hand Smoke Exposure: No Smoking Status: Current every day smoker Tobacco Type: Cigarettes How Often Do You Have a Drink Containing Alcohol: 4 or more times a week Hx Recent Travel: No Recent Travel in [facility] within the Last 8 Weeks: No Recent Out of Country Travel within the Last 8 Weeks: No Immunization History Tetanus Immunization: <5 Years Hx Influenza Vaccine This Season: No Pediatric Exam GENERAL: Patient is diaphoretic and has a large body habitus SKIN: Warm and dry. Diaphoretic HEAD: Atraumatic. Normocephalic. EYES: Pupils equal and round. No scleral icterus. No injection or drainage. ENT: No nasal bleeding or discharge. Mucous membranes pink and moist. NECK: Trachea midline. No JVD. CARDIOVASCULAR: Regular rate and rhythm. RESPIRATORY: No accessory muscle use. Clear to auscultation. Breath sounds equal bilaterally. GASTROINTESTINAL: Abdomen soft, non-tender, nondistended. Hepatic and splenic margins not palpable. MUSCULOSKELETAL: Extremities lower extremities have very large calf erythema to the medial to distal part of the anterior tibial bilateral and he is reporting severe pain in the upper leg on the left NEUROLOGICAL: Awake and alert. No obvious cranial nerve deficits. Motor grossly within normal limits. Five out of 5 muscle strength in the arms and legs. Normal speech. PSYCHIATRIC: Appropriate mood and affect; insight and judgment normal. Course Initial Documented Vital Signs Temperature 97.9 F 12/26/17 19:45 Pulse Rate 114 H 12/26/17 19:45 Respiratory Rate 20 12/26/17 19:45 Blood Pressure 131/75 12/26/17 19:45 Pulse Oximetry 96 12/26/17 19:45 Last Documented Vital Signs Temperature 97.7 F 12/28/17 11:48 Pulse Rate 73 12/28/17 11:55 Respiratory Rate 12 12/28/17 11:48 Blood Pressure 166/86 H 12/28/17 11:48 Pulse Oximetry 94 L 12/28/17 11:48 Sign Out Sign Out Data: Patient Sign Out occurred on 12/27/17 at 08:20. Patient's care was discussed, and care was transferred from Ronnie Aguirre to Catia Rosario MD. Sign Out Comment: Patient is coming in saying he wants to go to alcohol detox Jose Burt made him come to the ER here. Patient has not been taking his Eliquis for known DVT ultrasound on November 10 showed a right sided DVT he has not taken Eliquis for over a week because he has been binge drinking for over a week. He is tremulous diaphoretic he feels he is going into withdrawal and he also is worried that his leg mostly left leg pain is hurting. DVT ultrasound is pending , psych consult is pending Last updated by Ronnie Aguirre at 12/27/17 06:45 Post-Handoff Eval: Patient signed out for ultrasound results, which were positive for DVT. He's reporting dyspnea. Will get troponin, CXR, BNP, CTA chest, ECG, troponin. CXR: FINDINGS: The cardiac silhouette is enlarged in transverse diameter. There is prominence of the central pulmonary vasculature with indistinct vascular margins compatible with vascular congestion but no evidence of overt failure. No pleural effusions are identified. CONCLUSION: Cardiomegaly and findings of vascular congestion without overt failure. U/S: CONCLUSION: 1. Residual chronic partially occlusive DVT in the right femoral vein.2. Partially occlusive left femoral vein DVT extending to the calf. Although partially occlusive, this was not demonstrated on ultrasound exam of 11/09/2017 and therefore an interval finding. Suspect subacute thrombus.3. The greater saphenous vein is also involved in both lower extremities.4. Central outflow common femoral and iliac veins are patent bilaterally. ECG: Sinus rhythm, rate 68, normal axis, normal intervals, 1320: Troponin wnl, BNP pending. Admitte dpatient for obs for ETOH withdrawal, DVT. Discussed with Dr Hayes, will give 10mg po eliquis in ER. Medical Decision Making MDM Narrative Medical decision making narrative: Patient labs are sent patient is given Ativan to prevent any alcohol withdrawal he will be seen by psych patient will have an ultrasound both lower extremities to rule out DVT patient is signed out to the next oncoming attending possible psych eval to transfer to [facility] for alcohol detox Medical Screen Exam Complete: Yes Emergency Medical Condition: Yes Differential Diagnosis Differential Diagnosis: Differential diagnosis alcoholism versus alcohol withdrawal syndrome versus DVT recurrence due to lack of compliance. Versus leg pain NOS versus other Lab Data Result diagrams: 12/28/17 07:15 12/28/17 07:15 Lab Results 12/27/17 12/27/17 12/27/17 Range/Units 04:45 04:45 04:45 WBC 4.3 (4.0-11.0) th/mm3 RBC 4.15 L (4.50-5.90) mil/mm3 Hgb 13.9 (13.0-17.0) gm/dL Hct 40.3 (39.0-51.0) % MCV 97.1 (80.0-100.0) fL MCH 33.6 (27.0-34.0) pg MCHC 34.6 (32.0-36.0) % RDW 15.2 (11.6-17.2) % Plt Count 129 L (150-450) th/mm3 MPV 8.1 (7.0-11.0) fL Neut % (Auto) 60.3 (16.0-70.0) % Lymph % (Auto) 23.9 (9.0-44.0) % Cottle % (Auto) 12.0 H (0.0-8.0) % Eos % (Auto) 2.7 (0.0-4.0) % Baso % (Auto) 1.1 (0.0-2.0) % Neut # (Auto) 2.6 (1.8-7.7) th/mm3 Lymph # (Auto) 1.0 (1.0-4.8) th/mm3 Cottle # (Auto) 0.5 (0.0-0.9) th/mm3 Eos # (Auto) 0.1 (0.0-0.4) th/mm3 Baso # (Auto) 0.0 (0.0-0.2) th/mm3 WBC Differential . Differential Comment Auto diff final PT 10.1 (9.8-11.6) sec INR 1.0 Ratio Sodium 144 (136-145) meq/L Potassium 3.8 (3.5-5.1) meq/L Chloride 107 (98-107) meq/L Carbon Dioxide 28.9 (21.0-32.0) meq/L Anion Gap 8 (5-15) meq/L BUN 6 L (7-18) mg/dL Creatinine 0.79 (0.60-1.30) mg/dL Estimated GFR Greater than 89 (>89) mL/min Random Glucose 119 H (74-106) mg/dL Calcium 8.0 L (8.5-10.1) mg/dL Prot Corrected Calcium (8.5-10.1) mg/dL Total Bilirubin 0.4 (0.2-1.0) mg/dL AST 98 H (15-37) U/L ALT 101 H (12-78) U/L Alkaline Phosphatase 60 (45-117) U/L Troponin I (0.02-0.05) ng/mL B-Natriuretic Peptide (0-100) pg/mL Total Protein 7.0 (6.4-8.2) g/dL Albumin 3.0 L (3.4-5.0) g/dL 12/27/17 12/27/17 12/28/17 Range/Units 11:40 11:50 07:15 WBC 4.1 (4.0-11.0) th/mm3 RBC 3.85 L (4.50-5.90) mil/mm3 Hgb 13.0 (13.0-17.0) gm/dL Hct 37.5 L (39.0-51.0) % MCV 97.4 (80.0-100.0) fL MCH 33.9 (27.0-34.0) pg MCHC 34.8 (32.0-36.0) % RDW 15.2 (11.6-17.2) % Plt Count 102 L (150-450) th/mm3 MPV 8.0 (7.0-11.0) fL Neut % (Auto) 52.8 (16.0-70.0) % Lymph % (Auto) 31.0 (9.0-44.0) % Cottle % (Auto) 9.6 H (0.0-8.0) % Eos % (Auto) 5.8 H (0.0-4.0) % Baso % (Auto) 0.8 (0.0-2.0) % Neut # (Auto) 2.2 (1.8-7.7) th/mm3 Lymph # (Auto) 1.3 (1.0-4.8) th/mm3 Cottle # (Auto) 0.4 (0.0-0.9) th/mm3 Eos # (Auto) 0.2 (0.0-0.4) th/mm3 Baso # (Auto) 0.0 (0.0-0.2) th/mm3 WBC Differential . Differential Comment Auto diff final PT (9.8-11.6) sec INR Ratio Sodium (136-145) meq/L Potassium (3.5-5.1) meq/L Chloride (98-107) meq/L Carbon Dioxide (21.0-32.0) meq/L Anion Gap (5-15) meq/L BUN (7-18) mg/dL Creatinine (0.60-1.30) mg/dL Estimated GFR (>89) mL/min Random Glucose (74-106) mg/dL Calcium (8.5-10.1) mg/dL Prot Corrected Calcium (8.5-10.1) mg/dL Total Bilirubin (0.2-1.0) mg/dL AST (15-37) U/L ALT (12-78) U/L Alkaline Phosphatase (45-117) U/L Troponin I 0.02 (0.02-0.05) ng/mL B-Natriuretic Peptide 75 (0-100) pg/mL Total Protein (6.4-8.2) g/dL Albumin (3.4-5.0) g/dL 12/28/17 Range/Units 07:15 WBC (4.0-11.0) th/mm3 RBC (4.50-5.90) mil/mm3 Hgb (13.0-17.0) gm/dL Hct (39.0-51.0) % MCV (80.0-100.0) fL MCH (27.0-34.0) pg MCHC (32.0-36.0) % RDW (11.6-17.2) % Plt Count (150-450) th/mm3 MPV (7.0-11.0) fL Neut % (Auto) (16.0-70.0) % Lymph % (Auto) (9.0-44.0) % Cottle % (Auto) (0.0-8.0) % Eos % (Auto) (0.0-4.0) % Baso % (Auto) (0.0-2.0) % Neut # (Auto) (1.8-7.7) th/mm3 Lymph # (Auto) (1.0-4.8) th/mm3 Cottle # (Auto) (0.0-0.9) th/mm3 Eos # (Auto) (0.0-0.4) th/mm3 Baso # (Auto) (0.0-0.2) th/mm3 WBC Differential Differential Comment PT (9.8-11.6) sec INR Ratio Sodium 142 (136-145) meq/L Potassium 3.6 (3.5-5.1) meq/L Chloride 104 (98-107) meq/L Carbon Dioxide 27.6 (21.0-32.0) meq/L Anion Gap 10 (5-15) meq/L BUN 7 (7-18) mg/dL Creatinine 0.70 (0.60-1.30) mg/dL Estimated GFR Greater than 89 (>89) mL/min Random Glucose 85 (74-106) mg/dL Calcium 7.3 L* (8.5-10.1) mg/dL Prot Corrected Calcium 7.8 L (8.5-10.1) mg/dL Total Bilirubin (0.2-1.0) mg/dL AST (15-37) U/L ALT (12-78) U/L Alkaline Phosphatase (45-117) U/L Troponin I (0.02-0.05) ng/mL B-Natriuretic Peptide (0-100) pg/mL Total Protein 6.2 L D (6.4-8.2) g/dL Albumin (3.4-5.0) g/dL Imaging Data Radiologist's impression: Venous Doppler Study 12/27/17 05:45 CONCLUSION: 1. Residual chronic partially occlusive DVT in the right femoral vein. 2. Partially occlusive left femoral vein DVT extending to the calf. Although partially occlusive, this was not demonstrated on ultrasound exam of 11/09/2017 and therefore an interval finding. Suspect subacute thrombus. 3. The greater saphenous vein is also involved in both lower extremities. 4. Central outflow common femoral and iliac veins are patent bilaterally. Chest CTA 12/27/17 11:01 CONCLUSION: No evidence of pulmonary embolism. 6 mm nodule left upper lobe. Followup CT scan in 6 months is recommended. Chest X-Ray 12/27/17 11:01 CONCLUSION: Cardiomegaly and findings of vascular congestion without overt failure. Discharge Plan Discharge Disposition Patient Disposition: 30 Still Patient Discharge Condition Condition: Stable Discharge Order Discharge Orders: Discharge Order (Routine); Ordered 12/28/17 Ordered By: Randy Burrows Discharge Details Discharge Comment: Please DC after IV Lasix Diagnosis: Alcohol withdrawal, DVT (deep venous thrombosis) Physicians Team ED Provider: Catia Rosario Primary Care Provider: UNKNOWN, Attending Provider: Hudson Shine Status ED Status: Left Department Discharge Information Discharge Date/Time: 12/27/17 15:04
[2017-12-27] MEDS ORDERED: Sod Chloride 0.9% Inj 1,000 ML IV.SIG ONE (05:32)
[2017-12-27 05:37] LABS: Alanine Aminotransferase 101 U/L (12-78); Anion Gap 8 meq/L (5-15); Aspartate Aminotransferase 98 U/L (15-37); Blood Urea Nitrogen 6 mg/dL (7-18); Carbon Dioxide 28.9 meq/L (21.0-32.0); Chloride 107 meq/L (98-107); Glomerular Filtration Rate Greater Than 89 mL/min (>89); Glucose,Random 119 mg/dL (74-106); Potassium 3.8 meq/L (3.5-5.1); Sodium 144 meq/L (136-145)
[2017-12-27 05:39] LABS: Alkaline Phosphatase 60 U/L (45-117)
--- NOTE | 2017-12-27 08:25 | US ---
EXAM DATE: 12/27/2017 8:15 AM EDT AGE/SEX: 57 years / Male INDICATIONS: Bilateral leg swelling. CLINICAL DATA: This is the patient's subsequent encounter. Patient reports that signs and symptoms h ave been present for > 1 year and indicates a pain score of 8/10. MEDICAL/SURGICAL HISTORY: Angina. Chronic obstructive pulmonary disease. Deep venous thrombos is. HTN. High cholesterol. . Right leg foreign object removal surgery.Left leg knee surgery. [place]PAR[place] [facility] [place] VENOUS [place]PLER LE[place] BI, 11/09/2017. . TECHNIQUE: Venous ultrasound of both lower extremities was performed from the inguinal ligament to t he proximal calf. Real-time, color Doppler and spectral tracing, compression and augmentation techni ques were used. FINDINGS: Right Leg: Partially occlusive thrombus throughout the right femoral vein. Occlusion of the greater saphenous vein. Posterior tibial vein is not visualized. More centrally, the common femoral vein and iliac veins are patent. Left Leg: Partial occlusion of the femoral and popliteal veins. Thrombus extends to the left peronea l vein also the posterior tibial vein is not visualized. Occlusion of the greater saphenous vein in t he thigh with partial occlusion in the calf. More centrally, the common femoral vein and iliac veins are patent. Other: None. CONCLUSION: 1. Residual chronic partially occlusive DVT in the right femoral vein. 2. Partially occlusive left femoral vein DVT extending to the calf. Although partially occlusive, th is was not demonstrated on ultrasound exam of 11/09/2017 and therefore an interval finding. Suspect hong bacute thrombus. 3. The greater saphenous vein is also involved in both lower extremities. 4. Central outflow common femoral and iliac veins are patent bilaterally. Electronically signed by: Jones Giang MD 12/27/2017 8:24 AM EDT
--- NOTE | 2017-12-27 11:36 | XR ---
EXAM DATE: 12/27/2017 11:27 AM EDT AGE/SEX: 57 years / Male INDICATIONS: Dyspnea. Short of breath. CLINICAL DATA: This is the patient's initial encounter. Patient reports that signs and symptoms have been present for 1 week and indicates a pain score of 0/10. MEDICAL/SURGICAL HISTORY: . Angina. Chronic obstructive pulmonary disease. Deep venous thrombo sis. HTN. High cholesterol. . Right leg foreign object removal surgery. Left leg knee surgery. COMPARISON: [facility] – [place], CHEST 1V SINGLE AP, 11/29/2017. . FINDINGS: The cardiac silhouette is enlarged in transverse diameter. There is prominence of the central pulmona ry vasculature with indistinct vascular margins compatible with vascular congestion but no evidence o f overt failure. No pleural effusions are identified. CONCLUSION: Cardiomegaly and findings of vascular congestion without overt failure. Electronically signed by: León Jay MD 12/27/2017 11:35 AM EDT
--- NOTE | 2017-12-27 11:43 | CT ---
EXAM DATE: 12/27/2017 11:34 AM EDT AGE/SEX: 57 years / Male INDICATIONS: Bilateral lower leg pain, shortness of breath. CLINICAL DATA: This is the patient's initial encounter. Patient reports that signs and symptoms have been present for 1 day and indicates a pain score of 4/10. MEDICAL/SURGICAL HISTORY: Chronic obstructive pulmonary disease. Deep venous thrombosis. Hyperten atiya. None. RADIATION DOSE: 10.79 CTDI (mGy) COMPARISON: No prior exams available for comparison. TECHNIQUE: Volumetric scanning was performed using a multi-row detector CT scanner during bolus infu atiya of 75 ml Omnipaque 350 (iohexol) nonionic water-soluble contrast as a single exam dose. The thomas a was post processed with a variety of visualization algorithms including full volume maximum intensi ty projection and sliding thin slab reformation. Using automated exposure control and adjustment of the mA and/or kV according to patient size, radiation dose was kept as low as reasonably achievable t o obtain optimal diagnostic quality images. DICOM format image data is available electronically for review and comparison. FINDINGS: Examination of the pulmonary vasculature demonstrates good filling of the main, lobar and segmental b ranches. There are no filling defects to suggest pulmonary embolism. Multiplanar reconstructions are also unremarkable. There is a 6 mm nodule in the left upper lobe. Malignancy is not excluded. Followup CT scan in 6 mon ths is recommended. No pleural effusions are identified. Examination of the mediastinum demonstrates no abnormally enlarged lymph nodes by CT criteria. No axi llary or hilar abnormalities are identified. Coronary artery calcifications are not present. There is decreased density of the liver with respect to the spleen compatible with fatty infiltration. The sp brian is unremarkable. CONCLUSION: No evidence of pulmonary embolism. 6 mm nodule left upper lobe. Followup CT scan in 6 months is recommended. Electronically signed by: León Jay MD 12/27/2017 11:42 AM EDT
--- NOTE | 2017-12-27 13:23 | P.HP ---
History of Present Illness Primary Care Physician: UNKNOWN Chief Complaint: Left leg pain History of Present Illness: This is a pleasant 57 y/o man who was trying to get him to [facility] and he said he was too medically unstable to be admitted directly. Patient has history of DVTs for many years for which he has been on Coumadin but he was on aspirin Plavix now he is on Eliquis however he has not been taking over the last few days. He says he has not taken it because he has been drinking heavily he did not want to take it and he also is having some hematuria. His main complaint is his leg on the left is hurting severely. November 10 he had an ultrasound that showed a right DVT was there but the left had re cannulized. The Eliquis does not be taken for over a week he has been been drinking for over a week. He is feeling tremulous shaky wants detox and also thinks his leg left is hurting severely 8/ 10 pain reported Stable in his bedroom Morbid obese patient in no acute distress asking for pain medicine. Review of Systems All other systems reviewed negative except as stated in HPI PMFSH - History History Provided By: Medical Record - Medical History Medical History: Medical History (Last Reviewed 11/30/17 @ 17:26 by JENNIFER Renee) COPD (chronic obstructive pulmonary disease) (Acute) Dental decay (Acute) Hypertension (Acute) DVT (deep venous thrombosis) (Acute) Chest pain (Acute) High cholesterol (Acute) Surgical history unknown - Surgical History Surgical History: Surgical History (Last Updated 12/27/17 @ 14:35 by Aayush Hayes MD) H/O rotator cuff surgery History of mandibular surgery - Family History Family History: Family History (Last Updated 12/27/17 @ 14:36 by Aayush Hayes MD) Other Family history of hypertension Family history unknown - Tobacco History Second Hand Smoke Exposure: No Smoking Status: Former smoker Tobacco Type: Cigarettes - Alcohol History How Often Do You Have a Drink Containing Alcohol: 4 or more times a week - Substance Use History Substance History: No History of Abuse - Travel History History of Recent Travel: No Recent Travel in the [place] Within the Last 8 Weeks: No Recent Travel Out of the Country Within the Last 8 Weeks: No - Immunization History Tetanus Immunization: <5 Years Hx Influenza Vaccine This Season: No Medications and Allergies Allergies Allergy/AdvReac Type Severity Reaction Status Date / Time No Known Allergies Allergy Verified 12/26/17 22:03 Exam Vital signs: Vital Signs 12/26/17 19:45 12/26/17 22:40 12/27/17 05:45 Temperature 97.9 F Pulse Rate 114 H 86 Respiratory Rate 20 16 20 Blood Pressure 131/75 150/76 H Pulse Oximetry 96 98 12/27/17 08:31 12/27/17 12:41 Temperature Pulse Rate 87 96 H Respiratory Rate 18 17 Blood Pressure 168/102 H 171/98 H Pulse Oximetry 97 97 Intake & Output 12/26/17 12/27/17 12/27/17 18:59 06:59 18:59 Weight 158.757 kg Narrative: GENERAL: Morbid Obese patient in no acute SKIN: Warm and dry. Diaphoretic HEAD: Atraumatic. Normocephalic. EYES: Pupils equal and round. No scleral icterus. No injection or drainage. ENT: No nasal bleeding or discharge. Mucous membranes pink and moist. NECK: Trachea midline. No JVD. CARDIOVASCULAR: Regular rate and rhythm. RESPIRATORY: No accessory muscle use. Clear to auscultation. Breath sounds equal bilaterally. GASTROINTESTINAL: Abdomen soft, non-tender, nondistended. Hepatic and splenic margins not palpable. MUSCULOSKELETAL: Extremities lower extremities have very large calf erythema to the medial to distal part of the anterior tibial bilateral and he is reporting severe pain in the upper leg on the left NEUROLOGICAL: Awake and alert. No obvious cranial nerve deficits. Motor grossly within normal limits. Five out of 5 muscle strength in the arms and legs. Normal speech. PSYCHIATRIC: Appropriate mood and affect; insight and judgment normal. Results - Labs CBC & Chem 7: 12/27/17 04:45 12/27/17 04:45 Labs: Laboratory Results - last 24 hr 12/27/17 12/27/17 12/27/17 04:45 04:45 04:45 WBC 4.3 RBC 4.15 L Hgb 13.9 Hct 40.3 MCV 97.1 MCH 33.6 MCHC 34.6 RDW 15.2 Plt Count 129 L MPV 8.1 Neut % (Auto) 60.3 Lymph % (Auto) 23.9 [place] % (Auto) 12.0 H Eos % (Auto) 2.7 Baso % (Auto) 1.1 Neut # (Auto) 2.6 Lymph # (Auto) 1.0 [place] # (Auto) 0.5 Eos # (Auto) 0.1 Baso # (Auto) 0.0 WBC Differential . Differential Comment Auto diff final PT 10.1 INR 1.0 Sodium 144 Potassium 3.8 Chloride 107 Carbon Dioxide 28.9 Anion Gap 8 BUN 6 L Creatinine 0.79 Estimated GFR Greater than 89 Random Glucose 119 H Calcium 8.0 L Total Bilirubin 0.4 AST 98 H ALT 101 H Alkaline Phosphatase 60 Troponin I Total Protein 7.0 Albumin 3.0 L 12/27/17 11:40 WBC RBC Hgb Hct MCV MCH MCHC RDW Plt Count MPV Neut % (Auto) Lymph % (Auto) [place] % (Auto) Eos % (Auto) Baso % (Auto) Neut # (Auto) Lymph # (Auto) [place] # (Auto) Eos # (Auto) Baso # (Auto) WBC Differential Differential Comment PT INR Sodium Potassium Chloride Carbon Dioxide Anion Gap BUN Creatinine Estimated GFR Random Glucose Calcium Total Bilirubin AST ALT Alkaline Phosphatase Troponin I 0.02 Total Protein Albumin - Imaging Impressions Venous Doppler Study 12/27/17 05:45 CONCLUSION: 1. Residual chronic partially occlusive DVT in the right femoral vein. 2. Partially occlusive left femoral vein DVT extending to the calf. Although partially occlusive, this was not demonstrated on ultrasound exam of 11/09/2017 and therefore an interval finding. Suspect subacute thrombus. 3. The greater saphenous vein is also involved in both lower extremities. 4. Central outflow common femoral and iliac veins are patent bilaterally. Chest CTA 12/27/17 11:01 CONCLUSION: No evidence of pulmonary embolism. 6 mm nodule left upper lobe. Followup CT scan in 6 months is recommended. Chest X-Ray 12/27/17 11:01 CONCLUSION: Cardiomegaly and findings of vascular congestion without overt failure. Caprini VTE Risk Assessment Caprini VTE Risk Assessment: Moderate/High Risk (score >= 2) Caprini Risk Assessment Model: Point Value = 1 Point Value = 2 Point Value = 3 Point Value = 5 Age 41-60 Minor surgery BMI > 25 kg/m2 Swollen legs Varicose veins or History of unexplained or recurrent spontaneous Oral contraceptives or hormone replacement Sepsis (< 1 month) Serious lung disease, including pneumonia (< 1 month) Abnormal pulmonary function Acute myocardial infarction Congestive heart failure (< 1 month) History of inflammatory bowel disease Medical patient at bed rest Age 61-74 Arthroscopic surgery Major open surgery (> 45 min) Laparoscopic surgery (> 45 min) Malignancy Confined to bed (> 72 hours) Immobilizing plaster cast Central venous access Age >= 75 History of VTE Family history of VTE Factor V Leiden Prothrombin [id number] Lupus anticoagulant Anticardiolipin antibodies Elevated serum homocysteine Heparin-induced thrombocytopenia Other congenital or acquired thrombophilia Stroke (< 1 month) Elective arthroplasty Hip, pelvis, or leg fracture Acute spinal cord injury (< 1 month) Prophylaxis Regimen: Total Risk Factor Score Risk Level Prophylaxis Regimen 0-1 Low Early ambulation 2 Moderate Order ONE of the following: *Sequential Compression Device (SCD) *Heparin 5000 units SQ BID 3-4 Higher Order ONE of the following medications: *Heparin 5000 units SQ TID *Enoxaparin/Lovenox 40 mg SQ daily (WT < 150 kg, CrCl > 30 mL/min) *Enoxaparin/Lovenox 30 mg SQ daily (WT < 150 kg, CrCl > 10-29 mL/min) *Enoxaparin/Lovenox 30 mg SQ BID (WT < 150 kg, CrCl > 30 mL/min) AND/OR *Sequential Compression Device (SCD) 5 or more Highest Order ONE of the following medications: *Heparin 5000 units SQ TID (Preferred with Epidurals) *Enoxaparin/Lovenox 40 mg SQ daily (WT < 150 kg, CrCl > 30 mL/min) *Enoxaparin/Lovenox 30 mg SQ daily (WT < 150 kg, CrCl > 10-29 mL/min) *Enoxaparin/Lovenox 30 mg SQ BID (WT < 150 kg, CrCl > 30 mL/min) AND *Sequential Compression Device (SCD) Assessment and Plan - Plan 1. History of DVT has residual chronic partially occlusive DVT in the right femoral vein 2. Sub Acute DVT on the left femoral vein not seen on 11/09/17 discussed with ER specialist will re start his Eliquis at 10 mg BID for seven days and then continue as 5 mg BID thereafter he may be discharge after CTA no pulmonary emboli, has 6 mm nodule on Left upper lobe for follow up in six months, 3. Hypertension controlled continue Home medicines 4. Alcohol abuse and dependency he was seen by [facility] will be seen by Psychiatry in this facility and let us know plan of care, [facility] protocol here 5. Depression continue Home medicines 6. GERD to continue Gastric protection 7. Hyperlipidemia to continue home medicines 8. Morbid Obesity strongly recommended diet and exercise DVT prophylaxis with Lovenox Complete laboratory Psych evaluation [employer] Examiner Code Status: Full code. Discussed Condition With: Catia Rosario Discharge Planning: Discharge in am tomorrow after Psych evaluation.
[2017-12-27] MEDS ORDERED: Bisacodyl 10 MG Supp RECTAL PRN (13:32)
[2017-12-27] MEDS ORDERED: Acetaminophen 325 MG Tablet PO PRN (13:32)
[2017-12-27] MEDS ORDERED: Haloperidol Inj 5 MG/ML Ampul IV.PUSH PRN (13:37)
[2017-12-27] MEDS: Famotidine 20 MG Tablet PO SCH ×2 (14:29→20:16)
[2017-12-27] MEDS: Sod Chloride 0.9% Inj 1,000 ML IV.CONT SCH (14:34)
[2017-12-27] MEDS: LORazepam 1 MG Tablet PO PRN ×2 (15:28→20:22)
[2017-12-27] MEDS: Ketorolac Inj 30 MG/ML (IVP) Vial IV.PUSH PRN ×2 (16:07→22:56)
[2017-12-27] MEDS: Lactobacillus Acidophilus/L. Spores Tablet PO SCH (17:49)
[2017-12-27] MEDS: Lisinopril 20 MG Tablet PO SCH (20:16)
[2017-12-28] MEDS: Sod Chloride 0.9% Inj 1,000 ML IV.CONT SCH ×2 (00:45→10:55)
[2017-12-28 08:36] LABS: Baso % (Auto) 0.8 % (0.0-2.0); Eos # (Auto) 0.2 th/mm3 (0.0-0.4); Eos % (Auto) 5.8 % (0.0-4.0); Hematocrit 37.5 % (39.0-51.0); Lymph # (Auto) 1.3 th/mm3 (1.0-4.8); Mean Corpuscular HGB Conc 34.8 % (32.0-36.0); Mean Corpuscular Hemoglobin 33.9 pg (27.0-34.0); Mean Corpuscular Volume 97.4 fL (80.0-100.0); Mono # (Auto) 0.4 th/mm3 (0.0-0.9); Mono % (Auto) 9.6 % (0.0-8.0); Neut # (Auto) 2.2 th/mm3 (1.8-7.7); Neut % (Auto) 52.8 % (16.0-70.0); Platelet Count 102 th/mm3 (150-450); Red Blood Count 3.85 mil/mm3 (4.50-5.90); Red Cell Distribution Width 15.2 % (11.6-17.2); White Blood Count 4.1 th/mm3 (4.0-11.0)
[2017-12-28] MEDS ORDERED: amLODIPine 5 MG Tablet PO SCH (09:00)
[2017-12-28] MEDS ORDERED: Mirtazapine 15 MG Tablet PO SCH (09:00)
[2017-12-28 09:12] LABS: Anion Gap 10 meq/L (5-15); Blood Urea Nitrogen 7 mg/dL (7-18); Calcium 7.3 mg/dL (8.5-10.1); Carbon Dioxide 27.6 meq/L (21.0-32.0); Chloride 104 meq/L (98-107); Glomerular Filtration Rate Greater Than 89 mL/min (>89); Glucose,Random 85 mg/dL (74-106); Potassium 3.6 meq/L (3.5-5.1); Sodium 142 meq/L (136-145)
[2017-12-28] MEDS: Lactobacillus Acidophilus/L. Spores Tablet PO SCH (09:32)
[2017-12-28] MEDS: Lisinopril 20 MG Tablet PO SCH (09:32)
[2017-12-28] MEDS: Famotidine 20 MG Tablet PO SCH (09:33)
[2017-12-28] MEDS: Ketorolac Inj 30 MG/ML (IVP) Vial IV.PUSH PRN (09:54)
[2017-12-28 10:01] LABS: Total Protein 6.2 g/dL (6.4-8.2)
--- NOTE | 2017-12-28 10:34 | P.PN ---
Subjective Interval history: Follow-up visit bilateral lower extremity DVT, noncompliance behavior, EtOH. Patient seen and examined today. States her legs are still swollen and hurting him. Discussed with patient results of ultrasound and the effects of his noncompliance. States he lost his home and has been drinking really heavily 5 L of vodka every day and does not want to take his medication. States that he is threat to himself when he goes outside because he will not take his medication and would be hurtful to himself and will come back to the ED if he gets discharge. States that "wanted to stay at the hospital about 4-5 days because is the weekend I have nowhere to go." Discussed with patient extensively that all of his medical problems can be managed in the outpatient setting and we are unable to keep him in the hospital setting just because he has nowhere to go. Discussed with patient that he will be medically manage including giving him all his medications and treating him if he has some alcohol withdrawal symptoms. As per nursing, patient has been demanding Ativan since this morning. He also states that "I cannot go out of the hospital because he has anxiety and depression." He was supposed to go to [facility] but because of his noncompliance behavior they are unable to get him to detox. He continues to drink alcohol. Admits to not taking his medication. Physical Exam Vital signs: Vital Signs 12/27/17 12:41 12/27/17 16:00 12/27/17 16:35 Temperature 98.2 F Pulse Rate 96 H 84 Respiratory Rate 17 16 18 Blood Pressure 171/98 H 117/104 H Pulse Oximetry 97 96 12/27/17 19:50 12/27/17 23:00 12/27/17 23:31 Temperature 98.6 F 97.7 F Pulse Rate 77 70 68 Respiratory Rate 20 20 Blood Pressure 150/71 H 143/76 H Pulse Oximetry 97 97 12/28/17 00:00 12/28/17 03:33 12/28/17 04:08 Temperature 99.2 F Pulse Rate 78 64 65 Respiratory Rate 20 Blood Pressure 144/82 H Pulse Oximetry 95 12/28/17 07:45 12/28/17 08:00 Temperature 98.6 F Pulse Rate 61 69 Respiratory Rate 20 20 Blood Pressure 158/86 H Pulse Oximetry 95 Intake & Output 12/27/17 12/28/1718 18:59 06:59 18:59 Intake Total 1000 / 1000 1120 / 1120 Output Total 800 / 800 Balance 1000 / 1000 320 / 320 Weight 158.75 kg Intake: IV 1000 / 1000 1000 / 1000 NS Inj 1,000 ML @ 100 mls/hr IV 1000 / 1000 .CONT .Q10H EMILIA Rx#:[id number] NS Inj 1,000 ML @ Wide Open IV. 1000 / 1000 SIG BOLUS ONE Rx#:[id number] Oral 120 / 120 Output: Urine 800 / 800 Other: Date of Last Bowel Movement 12/27/17 12/27/17 Weight On Admission 158.757 kg Narrative: GENERAL: This is a morbidly obese, in no apparent distress. SKIN: Warm and dry. HEENT: Normocephalic. Pupils equal round and reactive. Nose without bleeding. Airway patent. NECK: Trachea midline. Supple. CARDIOVASCULAR: Regular rate and rhythm without murmurs, gallops, or rubs. RESPIRATORY: Diminished bases. No wheezes, rales, or rhonchi. GASTROINTESTINAL: Abdomen soft, non-tender, obese. Bowel Sounds normoactive x4. MUSCULOSKELETAL: Extremities without clubbing, cyanosis. Bilateral lower extremity +2 edema NEUROLOGICAL: Awake and alert. Oriented to time, place, person. No focal neuro deficit. Moves all extremities. Normal speech. Results - Labs CBC & Chem 7: 12/28/17 07:15 12/28/17 07:15 Laboratory Results - last 24 hr 12/27/17 12/27/17 12/28/17 11:40 11:50 07:15 WBC 4.1 RBC 3.85 L Hgb 13.0 Hct 37.5 L MCV 97.4 MCH 33.9 MCHC 34.8 RDW 15.2 Plt Count 102 L MPV 8.0 Neut % (Auto) 52.8 Lymph % (Auto) 31.0 [place] % (Auto) 9.6 H Eos % (Auto) 5.8 H Baso % (Auto) 0.8 Neut # (Auto) 2.2 Lymph # (Auto) 1.3 [place] # (Auto) 0.4 Eos # (Auto) 0.2 Baso # (Auto) 0.0 WBC Differential . Differential Comment Auto diff final Sodium Potassium Chloride Carbon Dioxide Anion Gap BUN Creatinine Estimated GFR Random Glucose Calcium Prot Corrected Calcium Troponin I 0.02 B-Natriuretic Peptide 75 Total Protein 12/28/17 07:15 WBC RBC Hgb Hct MCV MCH MCHC RDW Plt Count MPV Neut % (Auto) Lymph % (Auto) [place] % (Auto) Eos % (Auto) Baso % (Auto) Neut # (Auto) Lymph # (Auto) [place] # (Auto) Eos # (Auto) Baso # (Auto) WBC Differential Differential Comment Sodium 142 Potassium 3.6 Chloride 104 Carbon Dioxide 27.6 Anion Gap 10 BUN 7 Creatinine 0.70 Estimated GFR Greater than 89 Random Glucose 85 Calcium 7.3 L* Prot Corrected Calcium 7.8 L Troponin I B-Natriuretic Peptide Total Protein 6.2 L D - Imaging Impressions Chest CTA 12/27/17 11:01 CONCLUSION: No evidence of pulmonary embolism. 6 mm nodule left upper lobe. Followup CT scan in 6 months is recommended. Chest X-Ray 12/27/17 11:01 CONCLUSION: Cardiomegaly and findings of vascular congestion without overt failure. Assessment and Plan - Plan Patient is a 57-year-old male with past medical history of COPD, HTN, DVT who came into the hospital stating that he was trying to get into [facility] but he was too medically unstable to be admitted directly and he was sent to the hospital. Subacute DVT History of DVT -CTA no pulmonary emboli, has 6 mm nodule on Left upper lobe for follow up in six months -Sub Acute DVT on the left femoral vein not seen on 11/09/17, he was restarted on Eliquis at 10 mg BID for seven days and then continue as 5 mg BID there after, and be DCD -Venous Doppler study showed 1. Residual chronic partially occlusive DVT in the right femoral vein. 2. Partially occlusive left femoral vein DVT extending to the calf. Although partially occlusive, this was not demonstrated on ultrasound exam of 11/09/2017 and therefore an interval finding. Suspect subacute thrombus. 3. The greater saphenous vein is also involved in both lower extremities. 4. Central outflow common femoral and iliac veins are patent bilaterally. -Continue Eliquis for discharge. Scripts have been printed. Hypertension Hyperlipidemia Bilateral lower extremity -Continue home medication. -Lasix IV for bilateral lower extremity edema. -Provide Lasix daily with potassium on DC Alcohol abuse and dependency he was seen by [facility] -[facility] protocol -Start Librium every 8 hours. [facility] Prescription Drug Monitoring Database has been queried and verified prior to prescribing the controlled substance. -He needs to remain sober for certain amount of days to be admitted to [facility] Depression continue Home medicines GERD to continue Gastric protection Morbid Obesity -diet and exercise Noncompliance behavior -Patient was counseled. He is very adamant that he states that the hospital because he has nowhere to go. He threatens to come back to the ED and threatens to fall he also threatens to not be compliant with all his medical treatment so he could come back to the hospital -He denies suicidal ideation however states that if we send him home he threatens to be suicidal and homicidal. States that "if you send me out on the street I would be a threat to myself, and threat to others because I just lost my house. I will go back to drinking." -Discussed extensively that he came in with medical issue and treatment plan with continued use of Eliquis. He has CM placement when he gets detox. He asked if "I declare I am suicidal can he stay?" when asked are you suicidal or have thoughts of suicide he said "No." DVT Prop Eliquis Discharge patient to home Condition on discharge: Stable Regular Diet as tolerated Ad Ora activity Rx written: As per [place] plan Follow-up with primary care physician, [facility] recommended [facility] Code Status: Full Code Discussed Condition With: Patient, nursing, Dr. Shine Discharge Planning: Plan to DC home Today.
[2017-12-28] MEDS ORDERED: chlordiazePOXIDE 25 MG Capsule PO SCH (11:00)
[2017-12-28 11:50] VITALS: BP 166/86; RESP 12; TEMP 97.7; O2SAT 94
[2017-12-28 11:55] VITALS: PULSE 73
--- NOTE | 2017-12-28 15:00 | ECG ---
Date Performed: 12/27/2017 Time Performed: 11:45:57 PTAGE: 57 years EKG: Sinus rhythm NORMAL ECG NO PREVIOUS TRACING DOCTOR: Saravanan Harley Interpretating Date/Time 12/28/2017 14:58:33
== END 2017-12-28 17:46 | disposition home or self-care (01) ==
LOC: NEDA 19:04 → NEPC 19:04 → NEPGCP 12-27 14:50
PROVIDERS: ADMIT Hospitalist; ATTEND Hospitalist